=== PATIENT | female | born 1955 | race Caucasian/White ===

== ENCOUNTER → 2018-05-02 | Outpatient (CLI) | payer MEDICARE ==
[2014-09-29 10:25] VITALS: BP 149/68
[~2018-05-02] MED LIST: no home medications
--- NOTE | 2018-05-02 16:28 | KCIC ---
Bone densitometry 05/02/2018 3:00 PM Indication: Osteoporosis. History of adult fracture. Comparison Study: None. Discussion: Bone Densitometry was performed with dual photon absorption of the lumbar spine and proximal left femur Lumbar Spine: Bone average density is 0.751 g/cm2 for L1-L4. T-Score is -2.7. Left femoral neck: Bone average density is 0.603 g/cm2. T-Score is -2.8. 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 Note: Definitions established by the World Health Organization: Normal: T-score is -1.0 or above. Osteopenia: T-score is between -1.0 and -2.5. Osteoporosis: T-score is -2.5 or below. Electronically signed by: Gurwinder Hooper MD (05/02/2018 4:24 PM) [id number]
--- NOTE | 2018-05-02 16:48 | KCIC ---
Bilateral digital screening mammograms with 3-D tomosynthesis: Reason for examination: Routine screening. Comparison is made to previous study dated 10/03/2014. Bilateral mammograms in CC and oblique projections were obtained with 2-D imaging and 3-D tomosynthesis imaging on a [employer] unit and reviewed on the workstation. Interpretation was made with the benefit of CAD. The skin and nipples show no abnormalities. No abnormal axillary lymph nodes are seen. The breast parenchyma is predominantly fatty. (Breast density: Category A.) There continues to be a small circumscribed lesion in the subareolar 5:00 position of the right breast which is unchanged. There are no new dominant masses, suspicious calcifications or architectural distortion. Impression: No evidence of malignancy. Recommend routine screening. BI-RAD Category 2: Benign. "Our facility is accredited by the [employer] Mammography Program." This patient's information has been entered into a reminder system for the patient to be notified with the results of her examination and a target date for the next mammogram. Electronically signed by: Bee Hand MD (05/02/2018 4:44 PM) [id number]
== END | disposition home or self-care (01) ==
LOC: KCIC DEXA 04-24 13:36
PROVIDERS: ATTEND Nurse Practitioner Family
DX: Z12.31 Encounter for screening mammogram for malignant neoplasm of breast (principal); M81.0 Age-related osteoporosis without current pathological fracture; Z78.0 Asymptomatic menopausal state; Z87.81 Personal history of (healed) traumatic fracture; Z87.891 Personal history of nicotine dependence
CPT/HCPCS: 77063; 77067; 77080

== ENCOUNTER 2020-04-18 14:31 | Inpatient (IN) | payer MEDICARE, MEDICAID ==
[~2020-04-18] VITALS: Ht 162.6 cm; Wt 46.5 kg
[~2020-04-18 14:31] MED LIST changes: +ACET325T9 PO; +CETI10TA74 PO; +CYAN25002 SL; +CYCL10TA2 PO; +DONE10TA7 PO; +POLY17PO29 PO; +QUET25TA5 PO
[2020-04-18] MEDS ORDERED: ONDANSETRON PF 4 MG/2 ML VIAL. IVP ONE (14:45)
[2020-04-18] MEDS ORDERED: fentaNYL PF VIAL 100 MCG/2 ML VIAL IVP ONE (14:45)
--- NOTE | 2020-04-18 15:02 | RAD ---
CHEST AP ONLY INDICATION: Reason: PREOP RT HIP FX / Spl. Instructions: / History: . COMPARISON STUDY: None. FINDINGS: Lungs: Normal lung volume. No pulmonary mass or consolidation. The tracheobronchial tree and hilar structures are normal. Pleura: No pleural effusion or pneumothorax. Heart and Mediastinum: The cardiomediastinal silhouette is normal. The great vessels of the thorax are normal. IMPRESSION: No acute cardiopulmonary process. Electronically signed by: Baldev Mello MD (04/18/2020 2:59 PM) [id number]
--- NOTE | 2020-04-18 15:04 | RAD ---
HIP RIGHT 2V WITH PELVIS DATE: 04/18/2020 12:00 AM INDICATION: Reason: fell, right hip pain / Spl. Instructions: / History: COMPARISON: None. FINDINGS: Acute right transcervical femoral neck fracture with proximal migration of the distal femur. IMPRESSION: Acute displaced right femoral neck fracture. Electronically signed by: Baldev Mello MD (04/18/2020 3:01 PM) [id number]
[2020-04-18] MEDS ORDERED: ONDANSETRON PF 4 MG/2 ML VIAL. IV PRN (15:45)
[2020-04-18 16:07] LABS: BASO % 0 % (0-3); EOS % 0 % (0-3); HEMATOCRIT 37.8 % (36.0-47.0); HEMOGLOBIN 12.9 g/dL (12.0-15.5); LYMPH # 1.3 x10^3/uL (1.0-4.8); LYMPH % 17 % (24-48); MEAN CORPUSCULAR HEMOGLOBIN 32 pg (25-35); MEAN CORPUSCULAR HGB CONC 34 g/dL (31-37); MEAN CORPUSCULAR VOLUME 95 fL (79-100); MONO # 0.3 x10^3/uL (0.0-1.1); MONO % 4 % (0-9); NEUT % 79 % (31-73); PLATELET COUNT 226 x10^3/uL (140-400); RED BLOOD COUNT 3.98 x10^6/uL (3.50-5.40); WHITE BLOOD COUNT 7.6 x10^3/uL (4.0-11.0)
[2020-04-18 16:17] LABS: PROTHROMBIN TIME PATIENT 11.8 SEC (11.7-14.0)
[2020-04-18 16:27] LABS: CALCIUM 9.6 mg/dL (8.5-10.1); POTASSIUM 3.9 mmol/L (3.5-5.1)
[2020-04-18 16:33] LABS: ALBUMIN 3.8 g/dL (3.4-5.0); ALBUMIN/GLOBULIN RATIO 1.3 (1.0-1.7); TOTAL BILIRUBIN 0.3 mg/dL (0.2-1.0); TOTAL PROTEIN 6.8 g/dL (6.4-8.2)
--- NOTE | 2020-04-18 18:17 | PHYS DOC ---
Past Medical History Past Medical History: Anxiety, Depression, Other Additional Past Medical Histor: baseline A&O x 1, posterial cortical atrophy Past Surgical History: No Surgical History, Hysterectomy, Other Additional Past Surgical Histo: bilateral wrist and arm Smoking Status: Never Smoker Alcohol Use: None Drug Use: None General Adult EDM: Chief Complaint: TRAUMA ALERT HPI: HPI: Patient is a 64 year old who is legally blind, she tripped over the wheelchair and fell in her room, fell down on the right hip, could not get up because of pain. Patient complains of severe right hip pain. Denies any back pain, no chest pain, no headache, no neck pain. Patient denies any upper extremity pain. Review of Systems: Review of Systems: Constitutional: Denies fever or chills. [] Eyes: Denies change in visual acuity. [] HENT: Denies nasal congestion or sore throat. [] Respiratory: Denies cough or shortness of breath. [] Cardiovascular: Denies chest pain or edema. [] GI: Denies abdominal pain, nausea, vomiting, bloody stools or diarrhea. [] : Denies dysuria. [] Musculoskeletal: Positive for right hip pain, denies any back pain. Integument: Denies rash. [] Neurologic: Denies headache, focal weakness or sensory changes. [] Endocrine: Denies polyuria or polydipsia. [] Lymphatic: Denies swollen glands. [] Psychiatric: Denies depression or anxiety. [] Heart Score: Risk Factors: Risk Factors: DM, Current or recent (<one month) smoker, HTN, HLP, family history of CAD, obesity. Risk Scores: Score 0 - 3: 2.5% MACE over next 6 weeks - Discharge Home Score 4 - 6: 20.3% MACE over next 6 weeks - Admit for Clinical Observation Score 7 - 10: 72.7% MACE over next 6 weeks - Early Invasive Strategies Current Medications: Current Medications Medications (Trade) Dose Ordered Sig/Debra Start Time Stop Time Status Last Admin Dose Admin Fentanyl Citrate (Fentanyl 2ml Vial) 50 mcg PRN Q1HR PRN 04/18/20 15:45 04/19/20 15:44 Ondansetron HCl (Zofran) 4 mg PRN Q8HRS PRN 04/18/20 15:45 04/19/20 15:44 Sodium Chloride 1,000 ml @ 75 mls/hr [id number] 04/18/20 15:31 04/19/20 15:30 Allergies: Allergies: Allergies Coded Allergies Type Severity Reaction Last Updated Verified acetaminophen Adverse Reaction Intermediate 09/29/14 No codeine Adverse Reaction Intermediate 04/18/20 Yes oxycodone Adverse Reaction Intermediate 09/29/14 No Physical Exam: PE: Constitutional: Well developed, well nourished, moderate acute distress due to pain, non-toxic appearance. [] HENT: Normocephalic, atraumatic, bilateral external ears normal, oropharynx moist, no oral exudates, nose normal. [] Eyes: PERRLA, EOMI, conjunctiva normal, no discharge. [] Neck: Normal range of motion, no tenderness, supple, no stridor. [] Cardiovascular:Heart rate regular rhythm, no murmur [] Lungs & Thorax: Bilateral breath sounds clear to auscultation [] Abdomen: Bowel sounds normal, soft, no tenderness, no masses, no pulsatile masses. [] Skin: Warm, dry, no erythema, no rash. [] Back: No tenderness, no CVA tenderness. [] Extremities: Right hip is tender to palpation, right leg is shortened, no open wound. There is strong dorsalis pedis pulse. Neurologic: Alert and oriented X 3, normal motor function, normal sensory function, no focal deficits noted. [] Psychologic: Affect normal, judgement normal, mood normal. [] Current Patient Data: Labs: Laboratory Tests Test 04/18/20 14:56 04/18/20 15:15 04/18/20 15:45 04/18/20 16:00 Magnesium Level 2.2 mg/dL (1.8-2.4) SARS-CoV-2 Antigen (Rapid) Negative (NEGATIVE) Sodium Level 142 mmol/L (136-145) Potassium Level 3.9 mmol/L (3.5-5.1) Chloride Level 105 mmol/L (98-107) Carbon Dioxide Level 29 mmol/L (21-32) Anion Gap 8 (6-14) Blood Urea Nitrogen 22 mg/dL (7-20) H Creatinine 1.0 mg/dL (0.6-1.0) Estimated GFR (Cockcroft-Gault) 56.0 BUN/Creatinine Ratio 22 (6-20) H Glucose Level 124 mg/dL (70-99) H Calcium Level 9.6 mg/dL (8.5-10.1) Total Bilirubin 0.3 mg/dL (0.2-1.0) Aspartate Amino Transferase (AST) 23 U/L (15-37) Alanine Aminotransferase (ALT) 35 U/L (14-59) Alkaline Phosphatase 88 U/L (46-116) Total Protein 6.8 g/dL (6.4-8.2) Albumin 3.8 g/dL (3.4-5.0) Albumin/Globulin Ratio 1.3 (1.0-1.7) White Blood Count 7.6 x10^3/uL (4.0-11.0) Red Blood Count 3.98 x10^6/uL (3.50-5.40) Hemoglobin 12.9 g/dL (12.0-15.5) Hematocrit 37.8 % (36.0-47.0) Mean Corpuscular Volume 95 fL (79-100) Mean Corpuscular Hemoglobin 32 pg (25-35) Mean Corpuscular Hemoglobin Concent 34 g/dL (31-37) Red Cell Distribution Width 14.0 % (11.5-14.5) Platelet Count 226 x10^3/uL (140-400) Neutrophils (%) (Auto) 79 % (31-73) H Lymphocytes (%) (Auto) 17 % (24-48) L Monocytes (%) (Auto) 4 % (0-9) Eosinophils (%) (Auto) 0 % (0-3) Basophils (%) (Auto) 0 % (0-3) Neutrophils # (Auto) 6.0 x10^3/uL (1.8-7.7) Lymphocytes # (Auto) 1.3 x10^3/uL (1.0-4.8) Monocytes # (Auto) 0.3 x10^3/uL (0.0-1.1) Eosinophils # (Auto) 0.0 x10^3/uL (0.0-0.7) Basophils # (Auto) 0.0 x10^3/uL (0.0-0.2) Prothrombin Time 11.8 SEC (11.7-14.0) Prothrombin Time INR 0.9 (0.8-1.1) Activated Partial Thromboplast Time 28 SEC (24-38) Laboratory Tests 04/18/20 16:00 Laboratory Tests 04/18/20 15:45 Vital Signs: Vital Signs Date Time Temp Pulse Resp B/P (MAP) Pulse Ox O2 Delivery O2 Flow Rate FiO2 04/18/20 14:54 21 100 Room Air 04/18/20 14:37 73 04/18/20 14:31 97.9 135/71 (92) 97.9 EKG: EKG: [] Radiology/Procedures: Radiology/Procedures: [][address] [address] IMAGING REPORT Signed PATIENT: ADRIANA SNYDER AACCOUNT: [id number] : 1955 LOCATION: ER AGE: 64 SEX: F EXAM STATUS: PRE ER ORD. PHYSICIAN: DOT AKHTAR DO REASON: fell, right hip pain PROCEDURE: HIP RIGHT 2V WITH PELVIS HIP RIGHT 2V WITH PELVIS DATE: 04/18/2020 12:00 AM INDICATION: Reason: fell, right hip pain / Spl. Instructions: / History: COMPARISON: None. FINDINGS: Acute right transcervical femoral neck fracture with proximal migration of the distal femur. IMPRESSION: Acute displaced right femoral neck fracture. Electronically signed by: Janelle Mello MD (04/18/2020 3:01 PM) [id number] DICTATED and SIGNED BY: JANELLE MELLO MD DATE: 04/18/[address] [address] IMAGING REPORT Signed PATIENT: ADRIANA SNYDER AACCOUNT: [id number] : 1955 LOCATION: ER AGE: 64 SEX: F EXAM STATUS: PRE ER ORD. PHYSICIAN: DOT AKHTAR DO REASON: PREOP RT HIP FX PROCEDURE: CHEST AP ONLY CHEST AP ONLY INDICATION: Reason: PREOP RT HIP FX / Spl. Instructions: / History: . COMPARISON STUDY: None. FINDINGS: Lungs: Normal lung volume. No pulmonary mass or consolidation. The tracheobronchial tree and hilar structures are normal. Pleura: No pleural effusion or pneumothorax. Heart and Mediastinum: The cardiomediastinal silhouette is normal. The great vessels of the thorax are normal. IMPRESSION: No acute cardiopulmonary process. Electronically signed by: Janelle Mello MD (04/18/2020 2:59 PM) [id number] DICTATED and SIGNED BY: JANELLE MELLO MD DATE: 04/18/20 1459 Course & Med Decision Making: Course & Med Decision Making Pertinent Labs and Imaging studies reviewed. (See chart for details) Patient is a 64-year-old female who was brought here for evaluation after she fell at home. Patient was found to have fracture of the right hip, orthopedic doctor Dr. Stallings was consulted, recommended to admit the patient to hospitalist service and he will see the patient tomorrow for surgery. Discussed with Dr. Lazo hospitalist, who agreed to admit the patient Dragon Disclaimer: Colton Disclaimer: This electronic medical record was generated, in whole or in part, using a voice recognition dictation system. Departure Departure Impression: Primary Impression: Closed right hip fracture Disposition: ADMITTED INPATIENT Admitting Physician: TITUSS (DR. LAZO) Condition: STABLE Referrals: HAYDE LOGAN MD (PCP) Justicifation of Admission Dx: Justifications for Admission: Justification of Admission Dx: Yes Fracture: Fracture DOT AKHTAR DO Apr 18, 2020 18:17
[2020-04-18] MEDS: fentaNYL PF VIAL 100 MCG/2 ML VIAL IV PRN ×2 (19:09→21:12)
--- NOTE | 2020-04-18 19:27 | PDOC1 ---
History and Physical Date of Admission Date of Admission DATE: 04/18/20 TIME: 19:22 Source Source: Chart review, Patient History of Present Illness History of Present Illness Ms. Collins, is a 64 year old who is legally blind, in a senior care with degenerative neurologic disease. TOday, she has acute pain in her right leg and hi. She tripped over the wheelchair and fell in her room, fell down on the right hip, could not get up because of pain. marked pain, required PO pain meds, daughter is here to assist with history, pt has neurodeg brain disease. Denies any back pain, no chest pain, no headache, no neck pain Past Medical History Past Medical History blind Cardiovascular: No pertinent hx CENTRAL NERVOUS SYSTEM: Dementia, Periperal neuropathy, Other Musculoskeletal: low back pain Family History Family History: No Significant Social History Smoke: No ALCOHOL: none Current Problem List Problem List Problems Medical Problems: (1) Closed right hip fracture Status: Acute Current Medications Current Medications Current Medications Ondansetron HCl (Zofran) 4 mg 1X ONCE IVP Last administered on 04/18/20at 14:53; Start 04/18/20 at 14:45; Stop 04/18/20 at 14:46; Status DC Fentanyl Citrate (Fentanyl 2ml Vial) 75 mcg 1X ONCE IVP Last administered on 04/18/20at 14:54; Start 04/18/20 at 14:45; Stop 04/18/20 at 14:46; Status DC Ondansetron HCl (Zofran) 4 mg PRN Q8HRS PRN IV NAUSEA/VOMITING; Start 04/18/20 at 15:45; Stop 04/19/20 at 15:44 Fentanyl Citrate (Fentanyl 2ml Vial) 50 mcg PRN Q1HR PRN IV PAIN Last administered on 04/18/20at 19:09; Start 04/18/20 at 15:45; Stop 04/19/20 at 15:44 Sodium Chloride 1,000 ml @ 75 mls/hr [id number] IV ; Start 04/18/20 at 15:31; Stop 04/19/20 at 15:30 Acetaminophen (Tylenol) 500 mg TID PO ; Start 04/18/20 at 21:00; Status UNV Cetirizine HCl (ZyrTEC) 10 mg DAILY PO ; Start 04/19/20 at 09:00; Status UNV Cyclobenzaprine HCl (Flexeril) 10 mg TID PO ; Start 04/18/20 at 21:00; Status UNV Polyethylene Glycol (miraLAX PACKET) 17 gm DAILY PO ; Start 04/19/20 at 09:00; Status UNV Quetiapine Fumarate (SEROquel) 25 mg HS PO ; Start 04/18/20 at 21:00; Status UNV Non-Formulary Medication (Cyanocobalamin (Vitamin B-12) (B-12)) 2,500 mcg BID SL ; Start 04/18/20 at 21:00; Status UNV Cefazolin Sodium (Ancef) 1 gm 1X ONCE IVP ; Start 04/18/20 at 19:30; Stop 04/18/20 at 19:31; Status UNV Active Scripts Active Reported Tylenol (Acetaminophen) 325 Mg Tablet 500 Mg PO TID Zyrtec (Cetirizine Hcl) 10 Mg Tablet 10 Mg PO DAILY Seroquel (Quetiapine Fumarate) 25 Mg Tablet 25 Mg PO HS Miralax (Polyethylene Glycol 3350) 17 Gm Powd.pack 1 Pkt PO DAILY Cyclobenzaprine Hcl 10 Mg Tablet 10 Mg PO TID B-12 (Cyanocobalamin (Vitamin B-12)) 2,500 Mcg Tab.subl 2,500 Mcg SL BID Allergies Allergies: Coded Allergies: acetaminophen (Unverified Adverse Reaction, Intermediate, 09/29/14) codeine (Verified Adverse Reaction, Intermediate, 04/18/20) oxycodone (Unverified Adverse Reaction, Intermediate, 09/29/14) ROS Review of System unable, pt confused, distressed, has degerative neuro disorder Physical Exam General: Alert, severe distress (emotional and in pain), Other (disoriented, confused, ) HEENT: Mucous membr. moist/pink Lungs: Normal air movement Heart: no gallops Extremities: No cyanosis Skin: No rashes Neuro: Normal speech Psych/Mental Status: Other (confused, emotional ) Vitals Vitals Vital Signs Date Time Temp Pulse Resp B/P (MAP) Pulse Ox O2 Delivery O2 Flow Rate FiO2 04/18/20 19:09 20 Room Air 04/18/20 17:00 68 141/81 (101) 100 04/18/20 14:31 97.9 97.9 Labs Labs Laboratory Tests Test 04/18/20 14:56 8/1/20 15:15 04/18/20 15:45 04/18/20 16:00 Magnesium Level 2.2 mg/dL (1.8-2.4) SARS-CoV-2 Antigen (Rapid) Negative (NEGATIVE) Sodium Level 142 mmol/L (136-145) Potassium Level 3.9 mmol/L (3.5-5.1) Chloride Level 105 mmol/L (98-107) Carbon Dioxide Level 29 mmol/L (21-32) Anion Gap 8 (6-14) Blood Urea Nitrogen 22 mg/dL (7-20) Creatinine 1.0 mg/dL (0.6-1.0) Estimated GFR (Cockcroft-Gault) 56.0 BUN/Creatinine Ratio 22 (6-20) Glucose Level 124 mg/dL (70-99) Calcium Level 9.6 mg/dL (8.5-10.1) Total Bilirubin 0.3 mg/dL (0.2-1.0) Aspartate Amino Transf (AST/SGOT) 23 U/L (15-37) Alanine Aminotransferase (ALT/SGPT) 35 U/L (14-59) Alkaline Phosphatase 88 U/L (46-116) Total Protein 6.8 g/dL (6.4-8.2) Albumin 3.8 g/dL (3.4-5.0) Albumin/Globulin Ratio 1.3 (1.0-1.7) White Blood Count 7.6 x10^3/uL (4.0-11.0) Red Blood Count 3.98 x10^6/uL (3.50-5.40) Hemoglobin 12.9 g/dL (12.0-15.5) Hematocrit 37.8 % (36.0-47.0) Mean Corpuscular Volume 95 fL (79-100) Mean Corpuscular Hemoglobin 32 pg (25-35) Mean Corpuscular Hemoglobin Concent 34 g/dL (31-37) Red Cell Distribution Width 14.0 % (11.5-14.5) Platelet Count 226 x10^3/uL (140-400) Neutrophils (%) (Auto) 79 % (31-73) Lymphocytes (%) (Auto) 17 % (24-48) Monocytes (%) (Auto) 4 % (0-9) Eosinophils (%) (Auto) 0 % (0-3) Basophils (%) (Auto) 0 % (0-3) Neutrophils # (Auto) 6.0 x10^3/uL (1.8-7.7) Lymphocytes # (Auto) 1.3 x10^3/uL (1.0-4.8) Monocytes # (Auto) 0.3 x10^3/uL (0.0-1.1) Eosinophils # (Auto) 0.0 x10^3/uL (0.0-0.7) Basophils # (Auto) 0.0 x10^3/uL (0.0-0.2) Prothrombin Time 11.8 SEC (11.7-14.0) Prothromb Time International Ratio 0.9 (0.8-1.1) Activated Partial Thromboplast Time 28 SEC (24-38) Laboratory Tests Test 04/18/20 14:56 04/18/20 15:15 04/18/20 15:45 04/18/20 16:00 Magnesium Level 2.2 mg/dL (1.8-2.4) SARS-CoV-2 Antigen (Rapid) Negative (NEGATIVE) Sodium Level 142 mmol/L (136-145) Potassium Level 3.9 mmol/L (3.5-5.1) Chloride Level 105 mmol/L (98-107) Carbon Dioxide Level 29 mmol/L (21-32) Anion Gap 8 (6-14) Blood Urea Nitrogen 22 mg/dL (7-20) Creatinine 1.0 mg/dL (0.6-1.0) Estimated GFR (Cockcroft-Gault) 56.0 BUN/Creatinine Ratio 22 (6-20) Glucose Level 124 mg/dL (70-99) Calcium Level 9.6 mg/dL (8.5-10.1) Total Bilirubin 0.3 mg/dL (0.2-1.0) Aspartate Amino Transf (AST/SGOT) 23 U/L (15-37) Alanine Aminotransferase (ALT/SGPT) 35 U/L (14-59) Alkaline Phosphatase 88 U/L (46-116) Total Protein 6.8 g/dL (6.4-8.2) Albumin 3.8 g/dL (3.4-5.0) Albumin/Globulin Ratio 1.3 (1.0-1.7) White Blood Count 7.6 x10^3/uL (4.0-11.0) Red Blood Count 3.98 x10^6/uL (3.50-5.40) Hemoglobin 12.9 g/dL (12.0-15.5) Hematocrit 37.8 % (36.0-47.0) Mean Corpuscular Volume 95 fL (79-100) Mean Corpuscular Hemoglobin 32 pg (25-35) Mean Corpuscular Hemoglobin Concent 34 g/dL (31-37) Red Cell Distribution Width 14.0 % (11.5-14.5) Platelet Count 226 x10^3/uL (140-400) Neutrophils (%) (Auto) 79 % (31-73) Lymphocytes (%) (Auto) 17 % (24-48) Monocytes (%) (Auto) 4 % (0-9) Eosinophils (%) (Auto) 0 % (0-3) Basophils (%) (Auto) 0 % (0-3) Neutrophils # (Auto) 6.0 x10^3/uL (1.8-7.7) Lymphocytes # (Auto) 1.3 x10^3/uL (1.0-4.8) Monocytes # (Auto) 0.3 x10^3/uL (0.0-1.1) Eosinophils # (Auto) 0.0 x10^3/uL (0.0-0.7) Basophils # (Auto) 0.0 x10^3/uL (0.0-0.2) Prothrombin Time 11.8 SEC (11.7-14.0) Prothromb Time International Ratio 0.9 (0.8-1.1) Activated Partial Thromboplast Time 28 SEC (24-38) Images Images Acute right transcervical femoral neck fracture with proximal migration of the distal femur. VTE Prophylaxis Ordered VTE Prophylaxis Devices: Yes VTE Pharmacological Prophylaxi: No Assessment/Plan Assessment/Plan fall femoral neck fracture, acute leg pain, unable to wakl Blind cortical/basal degeneration syndrome, some signs of dementia, easily aggravated, disoriented, Justicifation of Admission Dx: Justifications for Admission: Justification of Admission Dx: Yes Fracture: Fracture BOSSMAN LAZO MD Apr 18, 2020 19:27
[2020-04-18] MEDS ORDERED: oxyCODONE/APAP 5/325 1 TAB TABLET PO PRN (19:30)
[2020-04-18] MEDS ORDERED: ceFAZolin SODIUM IV Push 1 GM VIAL. IVP ONE (19:30)
[2020-04-18] MEDS: ACETAMINOPHEN 500 MG TABLET PO SCH ×2 (19:30→21:00)
[2020-04-18] MEDS ORDERED: traMADol 50 MG TABLET PO PRN (19:45)
--- NOTE | 2020-04-18 19:56 | NUR ---
1755 Pt placed in room via guerney from the ED. Daughter is present. Pt refused being moved from the linens and cut clothing under her until more pain medication could be given. I called Leslie VIVAS from the [facility] to get report on patient. Report passed on to Soraya VIVAS for health promotion officer.
[2020-04-18] MEDS: CYCLOBENZAPRINE 10 MG TABLET. PO SCH (21:00)
[2020-04-18] MEDS ORDERED: CYANOCOBALAMIN 2500 MCG SL SCH (21:00)
[2020-04-18] MEDS: QUEtiapine 25 MG TABLET. PO SCH (21:00)
[2020-04-18] MEDS: IV NORMAL SALINE 1000ML BAG 1,000 ML IV SCH (21:30)
[2020-04-18 23:00] VITALS: BP 150/72
[2020-04-19] VITALS (10 sets, daily range): BP systolic 95–146; BP diastolic 35–74
[2020-04-19] MEDS ORDERED: SENN8.8S5 PO (00:04)
[2020-04-19] MEDS ORDERED: ACET500T68 PO (00:04)
[2020-04-19] MEDS ORDERED: POLY15DR20 EACHEYE (00:04)
[2020-04-19] MEDS ORDERED: PHEN1SUP75 RC (00:04)
[2020-04-19] MEDS ORDERED: BUPR100T8 PO (00:04)
--- NOTE | 2020-04-19 00:14 | NUR ---
Assessed pt just prior to 1999. Pt agitated and confused - unable to comprehend what is going on and where daughter is. Is frantic and agitated. Given prn dose of lorazepam to help calm pt down. HCT sat in room with pt until pt settled. No meds given other than ativan as pt too agitated. Will reassess status later in shift to see if pt able to take PO meds.
[2020-04-19] MEDS: IV NORMAL SALINE 1000ML BAG 1,000 ML IV SCH (04:51)
[2020-04-19] MEDS: fentaNYL PF VIAL 100 MCG/2 ML VIAL IV PRN ×4 (06:02→12:18)
[2020-04-19] MEDS ORDERED: IV RINGERS,LACTATED 1000ML 1,000 ML IV SCH ×2 (08:07→08:23)
[2020-04-19] MEDS ORDERED: MORPHINE SULFATE 2 MG/ML VIAL. IV PRN ×2 (08:15→08:30)
[2020-04-19] MEDS ORDERED: LIDOCAINE 1% PF 2 ML VIAL. ID PRN ×2 (08:15→08:30)
[2020-04-19] MEDS ORDERED: ONDANSETRON PF 4 MG/2 ML VIAL. IV PRN (08:15)
[2020-04-19] MEDS ORDERED: fentaNYL PF VIAL 100 MCG/2 ML VIAL IV PRN ×3 (08:15→08:30)
[2020-04-19] MEDS ORDERED: HYDROmorphone 2 MG/ML VIAL IV PRN ×2 (08:15→08:30)
[2020-04-19] MEDS ORDERED: PROCHLORPERAZINE 10 MG/2 ML VIAL. IV PRN ×2 (08:15→08:30)
--- NOTE | 2020-04-19 08:18 | NUR ---
Pt transferred to OR holding area with OR staff and daughter is present.
--- NOTE | 2020-04-19 08:26 | PDOC4 ---
Operative Note Operative Note Date of procedure: 04/19/2020 Surgeon: Freddie Garcia Preoperative diagnosis: Closed right femoral neck fracture Postoperative diagnosis: Same Procedure performed: Right hip hemiarthroplasty Anesthesia: General Findings: Acute femoral neck fracture Blood loss: 100 mL Complications: None Components inserted: [employer] cemented Synergy stem size 9, 44 cobalt chrome head, 40+4 taper sleeve Reason for procedure: Patient is a very pleasant 64-year-old female who resides at a long-term facility and was brought in with her daughter after suffering a ground-level fall and inability to ambulate due to pain. Clinical and radiographic examination were consistent with the preoperative diagnosis. Discussion of the risks, benefits, and alternatives was had with the patient's family member and she elected to proceed with surgery. Description of procedure: Patient was greeted in the preoperative holding area by myself or the correct extremity was verified and marked. She was taken to the operative suite and antibiotics were started as she was brought back. Once in the operating room, she was transferred gently supine to the operating room table where she underwent successful induction of a general anesthetic. She was laid lateral decubitus position with the right side up and secured to the bed with her hip positioning devices. Right lower extremity and hip region were prepped and draped in the usual sterile fashion including Ioban sandwich. We conducted our standard preoperative timeout. I palpated marked surface anatomy and guy a line for my posterior lateral skin incision. I then incised skin with a scalpel and dissected subcutaneous tissue with electrocautery, cauterizing bleeders as they were encountered. Identified the fascia and incised this in line with the skin incision and bluntly split the gluteus padilla in line with its fibers. I swept some bursal tissue posteriorly and took down the quadratus, the piriformis was also taken down and tagged. I identified the capsule and incised in a T-type incision using traction sutures as well. After this, I made my femoral neck cut palpating about 1 cm proximal to the lesser trochanter and deliver the bony pieces from the operative field followed by the femoral head and remainder of the neck. I inspected the acetabulum, she had somewhere. I irrigated everything out to help make sure I had removed all loose bony pieces. I then reposition the leg and placed my proximal femoral elevator in place, I used my lady cutting osteotome followed by canal finding reamer and then broaches. I broached to the above size which I felt gave a good fit and fill. I then trialed head and neck combinations to achieve the best leg length and stability. After this, I redislocated the hip and removed all trial components and then cemented the stem in place, holding pressure while the cement polymerized after thoroughly irrigating the canal that is. After this, I re-trialed the head sizes and felt the above size gave the best stability and leg length. I then washed and dried the Yañez taper region and gently impacted the head in position and reduced the hip. Capsule was closed with simple interrupted #2 Ethibond. Piriformis was reapproximated through drill holes. [id number] 0 Vicryl was used to repair quadratus. Fascia was closed with running #2 Quill. Inverted interrupted 2 oh in a multilayered fashion was used for subcutaneous tissue and angelica were used for skin. I injected my periarticular mixture into the lori-incisional soft tissues. All counts were correct x2 prior to wound closure. No complications. At the conclusion, the hip was cleansed and dried and our incisional wound VAC was applied. Patient was then laid supine and transferred on the spine to the recovery cart negative PACU stable and extubated condition. Postoperative plan is to readmit her to the floor under the care of the hospitalist., I will follow along. FREDDIE GARCIA II, MD Apr 19, 2020 08:26
--- NOTE | 2020-04-19 08:31 | PDOC2 ---
CONSULT Date of Consult Date of Consult DATE: 04/19/20 TIME: 08:28 Reason for Consult Reason for Consult: Right hip fracture Referring Physician Referring Physician: Davion Identification/Chief Complaint Chief Complaint Right hip pain Source Source: Caregiver History of Present Illness Reason for Visit: Patient is a pleasant 64-year-old female who is legally blind and resides at [facility] [place] in [place] and had a ground-level fall when she tripped over a wheelchair. Due to pain and inability ambulate she was brought into the emergency department and found to have a femoral neck fracture she does not verbalize much or answer questions. She is accompanied by her daughter who is at bedside. They tell me that normally the patient is able to ambulate fairly well in her facility. Past Medical History Cardiovascular: No pertinent hx CENTRAL NERVOUS SYSTEM: Dementia, Periperal neuropathy, Other Musculoskeletal: low back pain Family History Family History: No Significant Social History No ALCOHOL: none Current Problem List Problem List Problems Medical Problems: (1) Closed right hip fracture Status: Acute Current Medications Current Medications Current Medications Ondansetron HCl (Zofran) 4 mg 1X ONCE IVP Last administered on 04/18/20at 14:53; Start 04/18/20 at 14:45; Stop 04/18/20 at 14:46; Status DC Fentanyl Citrate (Fentanyl 2ml Vial) 75 mcg 1X ONCE IVP Last administered on 04/18/20at 14:54; Start 04/18/20 at 14:45; Stop 04/18/20 at 14:46; Status DC Ondansetron HCl (Zofran) 4 mg PRN Q8HRS PRN IV NAUSEA/VOMITING; Start 04/18/20 at 15:45; Stop 04/19/20 at 15:44 Fentanyl Citrate (Fentanyl 2ml Vial) 50 mcg PRN Q1HR PRN IV PAIN Last administered on 04/19/20at 08:01; Start 04/18/20 at 15:45; Stop 04/19/20 at 15:44 Sodium Chloride 1,000 ml @ 75 mls/hr [id number] IV Last administered on 04/18/20at 21:30; Start 04/18/20 at 15:31; Stop 04/19/20 at 15:30 Acetaminophen (Tylenol) 500 mg TID PO ; Start 04/18/20 at 19:30 Cetirizine HCl (ZyrTEC) 10 mg DAILY PO ; Start 04/19/20 at 09:00 Cyclobenzaprine HCl (Flexeril) 10 mg TID PO ; Start 04/18/20 at 21:00 Polyethylene Glycol (miraLAX PACKET) 17 gm DAILY PO ; Start 04/19/20 at 09:00 Quetiapine Fumarate (SEROquel) 25 mg HS PO ; Start 04/18/20 at 21:00 Non-Formulary Medication (Cyanocobalamin (Vitamin B-12) (B-12)) 2,500 mcg BID SL ; Start 04/18/20 at 21:00; Stop 04/19/20 at 08:12; Status DC Cefazolin Sodium (Ancef) 1 gm 1X ONCE IVP ; Start 04/18/20 at 19:30; Stop 04/18/20 at 19:31; Status DC Oxycodone/ Acetaminophen (Percocet 5/325) 1 tab PRN Q4HRS PRN PO PAIN; Start 04/18/20 at 19:30 Lorazepam (Ativan Inj) 0.5 mg PRN Q4HRS PRN IVP ANXIETY / AGITATION Last administered on 04/18/20at 20:18; Start 04/18/20 at 19:30 Tramadol HCl (Ultram) 50 mg PRN Q6HRS PRN PO PAIN; Start 04/18/20 at 19:45 Morphine Sulfate 5 mg/Ketorolac Tromethamine 30 mg/Ropivacaine 60 ml/Epinephrine HCl 0.5 mg/Sodium Chloride 100 ml @ 100 mls/hr 1X ONCE INT ART ; Start 04/19/20 at 08:00; Stop 04/19/20 at 08:59 Ondansetron HCl (Zofran) 4 mg PRN Q6HRS PRN IV NAUSEA/VOMITING; Start 04/19/20 at 08:15; Stop 04/20/20 at 08:14 Fentanyl Citrate (Fentanyl 2ml Vial) 25 mcg PRN Q5MIN PRN IV MILD PAIN 1-3; Start 04/19/20 at 08:15; Stop 04/20/20 at 08:14 Fentanyl Citrate (Fentanyl 2ml Vial) 50 mcg PRN Q5MIN PRN IV MODERATE TO SEVERE PAIN; Start 04/19/20 at 08:15; Stop 04/20/20 at 08:14 Morphine Sulfate (Morphine Sulfate) 1 mg PRN Q10MIN PRN IV SEVERE PAIN 7-10; Start 04/19/20 at 08:15; Stop 04/20/20 at 08:14 Ringer's Solution 1,000 ml @ 30 mls/hr Q24H IV ; Start 04/19/20 at 08:07; Stop 04/19/20 at 20:06 Lidocaine HCl (Xylocaine-Mpf 1% 2ml Vial) 2 ml PRN 1X PRN ID PRIOR TO IV START; Start 04/19/20 at 08:15; Stop 04/20/20 at 08:14 Hydromorphone HCl (Dilaudid) 0.5 mg PRN Q10MIN PRN IV SEV PAIN, Second choice; Start 04/19/20 at 08:15; Stop 04/20/20 at 08:14 Prochlorperazine Edisylate (Compazine) 5 mg PACU PRN PRN IV NAUSEA, MRX1; Start 04/19/20 at 08:15; Stop 04/20/20 at 08:14 Active Scripts Active Reported Bupropion Hcl Sr (Bupropion Hcl) 100 Mg Tablet.er 100 Mg PO DAILY Preparation H Suppository (Phenylephrine Hcl/Vanderbilt Butter) 1 Each Supp.rect 1 Each RC DAILY PRN Acetaminophen 500 Mg Tablet 1,000 Mg PO TID PRN Tylenol (Acetaminophen) 325 Mg Tablet 500 Mg PO TID Zyrtec (Cetirizine Hcl) 10 Mg Tablet 10 Mg PO DAILY Seroquel (Quetiapine Fumarate) 25 Mg Tablet 25 Mg PO HS Miralax (Polyethylene Glycol 3350) 17 Gm Powd.pack 1 Pkt PO DAILY Cyclobenzaprine Hcl 10 Mg Tablet 10 Mg PO TID B-12 (Cyanocobalamin (Vitamin B-12)) 2,500 Mcg Tab.subl 2,500 Mcg SL BID Polyvinyl Alcohol 15 Ml Drops 1 Drop EACHEYE TID 30 Days Allergies Allergies: Coded Allergies: acetaminophen (Unverified Adverse Reaction, Intermediate, 09/29/14) codeine (Verified Adverse Reaction, Intermediate, 04/18/20) oxycodone (Unverified Adverse Reaction, Intermediate, 09/29/14) ROS Review of System Unobtainable secondary to patient's mental status Physical Exam General: Alert, Oriented X3 HEENT: Atraumatic, EOMI Lungs: Other (Respirations are unlabored with symmetric chest rise) Heart: Regular rate Abdomen: Soft, No tenderness Extremities: No edema, Normal pulses Skin: No rashes Neuro: Other (She spontaneously wiggles her toes, but does not follow commands) Psych/Mental Status: Other (She does not answer asked questions.) MUSCULOSKELETAL: Other (Right lower extremity is slightly shorter and held externally rotated. No grimace or withdrawal with palpation around feet ankles or knees or her left hip.) Vitals VITALS Vital Signs Date Time Temp Pulse Resp B/P (MAP) Pulse Ox O2 Delivery O2 Flow Rate FiO2 04/19/20 08:01 20 Room Air 04/19/20 07:00 98.2 76 146/69 (94) 99 98.2 Labs Labs Laboratory Tests Test 04/18/20 14:56 04/18/20 15:15 04/18/20 15:45 04/18/20 16:00 Magnesium Level 2.2 mg/dL (1.8-2.4) SARS-CoV-2 Antigen (Rapid) Negative (NEGATIVE) Sodium Level 142 mmol/L (136-145) Potassium Level 3.9 mmol/L (3.5-5.1) Chloride Level 105 mmol/L (98-107) Carbon Dioxide Level 29 mmol/L (21-32) Anion Gap 8 (6-14) Blood Urea Nitrogen 22 mg/dL (7-20) Creatinine 1.0 mg/dL (0.6-1.0) Estimated GFR (Cockcroft-Gault) 56.0 BUN/Creatinine Ratio 22 (6-20) Glucose Level 124 mg/dL (70-99) Calcium Level 9.6 mg/dL (8.5-10.1) Total Bilirubin 0.3 mg/dL (0.2-1.0) Aspartate Amino Transf (AST/SGOT) 23 U/L (15-37) Alanine Aminotransferase (ALT/SGPT) 35 U/L (14-59) Alkaline Phosphatase 88 U/L (46-116) Total Protein 6.8 g/dL (6.4-8.2) Albumin 3.8 g/dL (3.4-5.0) Albumin/Globulin Ratio 1.3 (1.0-1.7) White Blood Count 7.6 x10^3/uL (4.0-11.0) Red Blood Count 3.98 x10^6/uL (3.50-5.40) Hemoglobin 12.9 g/dL (12.0-15.5) Hematocrit 37.8 % (36.0-47.0) Mean Corpuscular Volume 95 fL (79-100) Mean Corpuscular Hemoglobin 32 pg (25-35) Mean Corpuscular Hemoglobin Concent 34 g/dL (31-37) Red Cell Distribution Width 14.0 % (11.5-14.5) Platelet Count 226 x10^3/uL (140-400) Neutrophils (%) (Auto) 79 % (31-73) Lymphocytes (%) (Auto) 17 % (24-48) Monocytes (%) (Auto) 4 % (0-9) Eosinophils (%) (Auto) 0 % (0-3) Basophils (%) (Auto) 0 % (0-3) Neutrophils # (Auto) 6.0 x10^3/uL (1.8-7.7) Lymphocytes # (Auto) 1.3 x10^3/uL (1.0-4.8) Monocytes # (Auto) 0.3 x10^3/uL (0.0-1.1) Eosinophils # (Auto) 0.0 x10^3/uL (0.0-0.7) Basophils # (Auto) 0.0 x10^3/uL (0.0-0.2) Prothrombin Time 11.8 SEC (11.7-14.0) Prothromb Time International Ratio 0.9 (0.8-1.1) Activated Partial Thromboplast Time 28 SEC (24-38) Laboratory Tests Test 04/18/20 14:56 04/18/20 15:15 04/18/20 15:45 04/18/20 16:00 Magnesium Level 2.2 mg/dL (1.8-2.4) SARS-CoV-2 Antigen (Rapid) Negative (NEGATIVE) Sodium Level 142 mmol/L (136-145) Potassium Level 3.9 mmol/L (3.5-5.1) Chloride Level 105 mmol/L (98-107) Carbon Dioxide Level 29 mmol/L (21-32) Anion Gap 8 (6-14) Blood Urea Nitrogen 22 mg/dL (7-20) Creatinine 1.0 mg/dL (0.6-1.0) Estimated GFR (Cockcroft-Gault) 56.0 BUN/Creatinine Ratio 22 (6-20) Glucose Level 124 mg/dL (70-99) Calcium Level 9.6 mg/dL (8.5-10.1) Total Bilirubin 0.3 mg/dL (0.2-1.0) Aspartate Amino Transf (AST/SGOT) 23 U/L (15-37) Alanine Aminotransferase (ALT/SGPT) 35 U/L (14-59) Alkaline Phosphatase 88 U/L (46-116) Total Protein 6.8 g/dL (6.4-8.2) Albumin 3.8 g/dL (3.4-5.0) Albumin/Globulin Ratio 1.3 (1.0-1.7) White Blood Count 7.6 x10^3/uL (4.0-11.0) Red Blood Count 3.98 x10^6/uL (3.50-5.40) Hemoglobin 12.9 g/dL (12.0-15.5) Hematocrit 37.8 % (36.0-47.0) Mean Corpuscular Volume 95 fL (79-100) Mean Corpuscular Hemoglobin 32 pg (25-35) Mean Corpuscular Hemoglobin Concent 34 g/dL (31-37) Red Cell Distribution Width 14.0 % (11.5-14.5) Platelet Count 226 x10^3/uL (140-400) Neutrophils (%) (Auto) 79 % (31-73) Lymphocytes (%) (Auto) 17 % (24-48) Monocytes (%) (Auto) 4 % (0-9) Eosinophils (%) (Auto) 0 % (0-3) Basophils (%) (Auto) 0 % (0-3) Neutrophils # (Auto) 6.0 x10^3/uL (1.8-7.7) Lymphocytes # (Auto) 1.3 x10^3/uL (1.0-4.8) Monocytes # (Auto) 0.3 x10^3/uL (0.0-1.1) Eosinophils # (Auto) 0.0 x10^3/uL (0.0-0.7) Basophils # (Auto) 0.0 x10^3/uL (0.0-0.2) Prothrombin Time 11.8 SEC (11.7-14.0) Prothromb Time International Ratio 0.9 (0.8-1.1) Activated Partial Thromboplast Time 28 SEC (24-38) Images Images Hip and pelvis x-rays were reviewed Assessment/Plan Assessment/Plan Closed right femoral neck fracture. I did discuss the risks, benefits, a lternatives and rationale for right hip hemiarthroplasty with the patient's daughter and she elected to proceed. We will plan on surgery this morning. VENKATESH GARCIA II, MD Apr 19, 2020 08:31
[2020-04-19] MEDS ORDERED: ceFAZolin SODIUM IV Push 1 GM VIAL. IVP ONE (08:58)
[2020-04-19] MEDS ORDERED: fentaNYL PF VIAL 100 MCG/2 ML VIAL ONE (08:59)
[2020-04-19] MEDS: CYCLOBENZAPRINE 10 MG TABLET. PO SCH ×3 (09:00→20:41)
[2020-04-19] MEDS: ACETAMINOPHEN 500 MG TABLET PO SCH ×3 (09:00→20:41)
[2020-04-19] MEDS: CETIRIZINE HCL 10 MG TABLET. PO SCH (09:00)
[2020-04-19] MEDS: POLYETHYLENE GLYCOL 3350 17 GM PACKET. PO SCH (09:00)
[2020-04-19] MEDS: NICOTINE 21MG PATCH. TD SCH (10:00)
[2020-04-19] MEDS ORDERED: ROCURONIUM 50 MG/5 ML VIAL. ONE (10:03)
[2020-04-19] MEDS ORDERED: fentaNYL PF VIAL 250 MCG/5 ML VIAL ONE (10:06)
[2020-04-19] MEDS ORDERED: PROPOFOL 10 MG/ML (20ML) VIAL. IV ONE (10:08)
[2020-04-19] MEDS ORDERED: LIDOCAINE 2% PF 5 ML VIAL. ONE (10:08)
[2020-04-19] MEDS ORDERED: ONDANSETRON PF 4 MG/2 ML VIAL. ONE (10:40)
[2020-04-19] MEDS ORDERED: DEXAMETHASONE SOD PHOS 4 MG/ML VIAL ONE (10:40)
[2020-04-19] MEDS ORDERED: GLYCOPYRROLATE 1 MG/5 ML VIAL. ONE (10:40)
[2020-04-19] MEDS ORDERED: NEOSTIGMINE METHYLSULFATE 5 MG/5 ML SYRINGE. ONE (10:40)
[2020-04-19] MEDS: MORPHINE SULFATE 5 MG, KETOROLAC 30MG VIAL 30 MG, ROPIVacaine 0.5% PF 60 ML, EPINEPHrin... INT ART ONE ×2 (10:43→11:15)
[2020-04-19] MEDS ORDERED: PHENYLEPHRINE in 0.9% NACL PF 1 MG/10 ML SYRINGE. IV ONE (11:02)
[2020-04-19] MEDS ORDERED: HYDROmorphone 2 MG/ML VIAL ONE (11:29)
--- NOTE | 2020-04-19 12:03 | RAD ---
PELVIS DATE: 04/19/2020 11:43 AM INDICATION: Reason: postop / Spl. Instructions: / History: COMPARISON: 04/18/2020. FINDINGS: Postsurgical changes of interval right total hip arthroplasty. Surgical hardware is intact. No periprosthetic fracture is seen. Postsurgical soft tissue gas and skin angelica are present. IMPRESSION: Interval right total hip arthroplasty. No periprosthetic fracture is seen. Electronically signed by: Baldev Mello MD (04/19/2020 12:00 PM) [id number]
--- NOTE | 2020-04-19 12:14 | HP ---
ADMIT DATE: 04/18/2020 HISTORY OF PRESENT ILLNESS: The patient is a 64-year-old female patient, resident at [facility], who apparently fell and tripped over a wheelchair and fell in her room, fell down on the right hip, could not get up because of pain. The patient complained of severe right hip pain. Denies any other complaint, in particular denies any back pain, chest pain, headache or neck pain. No upper extremity pain. She is legally blind and she has posterior cortical atrophy; therefore, she was brought to the Emergency Room of [facility] where she was evaluated. Her x-ray of the hip and pelvis showed that the patient has acute right transcervical femoral neck fracture with proximal migration of the distal femur. Chest x-ray was unremarkable, in particular showed normal lung volumes, no pulmonary masses or consolidation, the tracheobronchial tree and hilar structures are normal, no pleural effusion or pneumothorax. Heart and mediastinum showed the cardiomediastinal silhouette is normal. The great vessels of thorax are normal and therefore, the patient was admitted for pain management and to consult the orthopedic surgeon for definitive surgical intervention. PAST MEDICAL HISTORY: Significant for anxiety and depression. She is legally blind and she has posterior cortical atrophy. PAST SURGICAL HISTORY: Hysterectomy, bilateral wrist and arm fracture. FAMILY HISTORY: Unobtainable. SOCIAL HISTORY: She is currently residing at [facility]. She does not smoke, drink alcohol or use recreational drugs. REVIEW OF SYSTEMS: Unobtainable. PHYSICAL EXAMINATION: GENERAL: On arrival to the Emergency Room, she looked well and was clearly in no apparent respiratory distress, pale, but no jaundice, cyanosis or thyromegaly. No jugular venous distention. No limb edema. VITAL SIGNS: Her heart rate was 70, blood pressure 135/71, temperature was 97.9, respiratory rate was 13, and oxygen saturation 100% on room air. HEAD, EYES, EARS, NOSE AND THROAT: Showed normocephalic, atraumatic. NECK: Supple. CARDIAC: Normal first and second heart sounds. No gallop, rub or murmur. CHEST: Clear to auscultation. No crepitation or rhonchi. ABDOMEN: Distended, soft, nontender. NEUROLOGIC: She is legally blind and she does not really follow commands; however, her right lower extremity is slightly shortened and externally rotated; however, the patient does not grimace or withdraw on palpation around her feet, ankles or knees. LABORATORY DATA: She has had lab work done in the Emergency Room which showed a white cell count of 7600, hemoglobin 12.9, hematocrit 37.8, MCV 95, and platelet count 226,000. Her chemistry showed a serum sodium 142, potassium 3.9, chloride 105, bicarbonate 29, anion gap of 8, BUN 22, creatinine 1, estimated GFR was 56 mL per minute. Her glucose 124, calcium was 9.6, magnesium 2.2. Total bilirubin, AST, ALT, alkaline phosphatase were normal. Total protein 6.8, albumin 3.8. Her prothrombin time, INR and APTT were normal. Her COVID-19 rapid test was negative. Her chest x-ray showed no acute cardiopulmonary process and x-ray of her hip and pelvis showed the patient has acute displaced right femoral neck fracture. ASSESSMENT AND PLAN: The patient was admitted to the floor, continued on IV antibiotic, continued all her other home medications. We have consulted Dr. Stallings for evaluation and definitive surgical treatment. ISABELA LERNER MD DR: VANE/antoine JOB#: [id number] / [id number]
[2020-04-19] MEDS: ceFAZolin SODIUM IV Push 1 GM VIAL. IVP SCH ×2 (16:35→20:41)
[2020-04-19] MEDS: QUEtiapine 25 MG TABLET. PO SCH (20:41)
[2020-04-19 21:08] LABS: BILIRUBIN,URINE NEGATIVE (NEG); CLARITY,URINE CLEAR; COLOR,URINE YELLOW; NITRITE,URINE NEGATIVE (NEG); PH,URINE 5.5 (<5.0-8.0); PROTEIN,URINE NEGATIVE (NEG-TRACE); UROBILINOGEN,URINE 0.2 mg/dL (0.2 mg/dL)
[2020-04-19 21:16] LABS: BACTERIA,URINE FEW /HPF (0-FEW); RBC,URINE OCC /HPF (0-2); SQUAMOUS EPITHELIAL CELL,UR OCC /LPF
[2020-04-19 21:17] LABS: HYALINE CASTS, URINE FEW /HPF
[2020-04-20 03:00] VITALS: BP 132/64
[2020-04-20] MEDS: ceFAZolin SODIUM IV Push 1 GM VIAL. IVP SCH (03:42)
[2020-04-20 07:23] VITALS: BP 145/67
[2020-04-20] MEDS: CYCLOBENZAPRINE 10 MG TABLET. PO SCH ×5 (08:25→20:45)
[2020-04-20] MEDS: CETIRIZINE HCL 10 MG TABLET. PO SCH ×2 (08:25→08:33)
[2020-04-20] MEDS: ACETAMINOPHEN 500 MG TABLET PO SCH ×4 (08:25→20:45)
[2020-04-20] MEDS: POLYETHYLENE GLYCOL 3350 17 GM PACKET. PO SCH (08:25)
[2020-04-20] MEDS: NICOTINE 21MG PATCH. TD SCH (08:25)
--- NOTE | 2020-04-20 09:02 | PN ---
DATE: 04/20/2020 SUBJECTIVE: The patient is resting, slightly propped up in bed, sleeping comfortably. Continue to hallucinate, apparently has been restless, agitated the whole night. OBJECTIVE: GENERAL: When I saw her this morning, she looked well and was clearly in no apparent respiratory distress. No pallor, jaundice, cyanosis, or thyromegaly. No jugular venous distention. No limb edema. VITAL SIGNS: Her heart rate was 93, blood pressure was 145/67, temperature was 98.7, respiratory rate was 18, and oxygen saturation was 98%. The rest of the clinical exam is stable, has not really changed. She is status post right hip hemiarthroplasty that was done successfully under general anesthesia. Her lab work is still pending at the time of this dictation. ASSESSMENT: 1. Fall with resultant right femoral neck fracture, status post right hip hemiarthroplasty. 2. Posterior cortical atrophy. 3. She is legally blind. 4. Anxiety and depression. PLAN: To continue with pain management. Continue with DVT prophylaxis. Continue with nicotine patch for nicotine dependence. We will start the process of physical and occupational therapy and she should be on a regular diet. ISABELA LERNER MD DR: VANE/antoine JOB#: [id number] / [id number]
--- NOTE | 2020-04-20 09:17 | NUR ---
SW following. Discussed with RN. 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 Pt on room air, full liquid diet, COVID-19 negative. PT/OT ordered today. ELODIA will continue to follow.
--- NOTE | 2020-04-20 09:50 | PDOC ---
ORTHO PROGRESS NOTES Subjective Daughter at bedside, patient more disoriented and confused. Vitals Vital Signs Date Time Temp Pulse Resp B/P (MAP) Pulse Ox O2 Delivery O2 Flow Rate FiO2 04/20/20 08:00 Room Air 04/20/20 07:23 98.7 93 18 145/67 (93) 98 98.7 04/19/20 20:00 2 Labs Laboratory Tests Test 04/18/20 14:56 04/18/20 15:15 04/18/20 15:45 04/18/20 16:00 Magnesium Level 2.2 mg/dL (1.8-2.4) SARS-CoV-2 Antigen (Rapid) Negative (NEGATIVE) Sodium Level 142 mmol/L (136-145) Potassium Level 3.9 mmol/L (3.5-5.1) Chloride Level 105 mmol/L (98-107) Carbon Dioxide Level 29 mmol/L (21-32) Anion Gap 8 (6-14) Blood Urea Nitrogen 22 mg/dL (7-20) Creatinine 1.0 mg/dL (0.6-1.0) Estimated GFR (Cockcroft-Gault) 56.0 BUN/Creatinine Ratio 22 (6-20) Glucose Level 124 mg/dL (70-99) Calcium Level 9.6 mg/dL (8.5-10.1) Total Bilirubin 0.3 mg/dL (0.2-1.0) Aspartate Amino Transf (AST/SGOT) 23 U/L (15-37) Alanine Aminotransferase (ALT/SGPT) 35 U/L (14-59) Alkaline Phosphatase 88 U/L (46-116) Total Protein 6.8 g/dL (6.4-8.2) Albumin 3.8 g/dL (3.4-5.0) Albumin/Globulin Ratio 1.3 (1.0-1.7) White Blood Count 7.6 x10^3/uL (4.0-11.0) Red Blood Count 3.98 x10^6/uL (3.50-5.40) Hemoglobin 12.9 g/dL (12.0-15.5) Hematocrit 37.8 % (36.0-47.0) Mean Corpuscular Volume 95 fL (79-100) Mean Corpuscular Hemoglobin 32 pg (25-35) Mean Corpuscular Hemoglobin Concent 34 g/dL (31-37) Red Cell Distribution Width 14.0 % (11.5-14.5) Platelet Count 226 x10^3/uL (140-400) Neutrophils (%) (Auto) 79 % (31-73) Lymphocytes (%) (Auto) 17 % (24-48) Monocytes (%) (Auto) 4 % (0-9) Eosinophils (%) (Auto) 0 % (0-3) Basophils (%) (Auto) 0 % (0-3) Neutrophils # (Auto) 6.0 x10^3/uL (1.8-7.7) Lymphocytes # (Auto) 1.3 x10^3/uL (1.0-4.8) Monocytes # (Auto) 0.3 x10^3/uL (0.0-1.1) Eosinophils # (Auto) 0.0 x10^3/uL (0.0-0.7) Basophils # (Auto) 0.0 x10^3/uL (0.0-0.2) Prothrombin Time 11.8 SEC (11.7-14.0) Prothromb Time International Ratio 0.9 (0.8-1.1) Activated Partial Thromboplast Time 28 SEC (24-38) Test 04/19/20 20:35 Urine Collection Type Unknown Urine Color Yellow Urine Clarity Clear Urine pH 5.5 (<5.0-8.0) Urine Specific Chase 1.020 (1.000-1.030) Urine Protein Negative mg/dL (NEG-TRACE) Urine Glucose (UA) Negative mg/dL (NEG) Urine Ketones (Stick) Negative mg/dL (NEG) Urine Blood Negative (NEG) Urine Nitrite Negative (NEG) Urine Bilirubin Negative (NEG) Urine Urobilinogen Dipstick 0.2 mg/dL (0.2 mg/dL) Urine Leukocyte Esterase Small (NEG) Urine RBC Occ /HPF (0-2) Urine WBC 5-10 /HPF (0-4) Urine Squamous Epithelial Cells Occ /LPF Urine Bacteria Few /HPF (0-FEW) Urine Hyaline Casts Few /HPF Urine Mucus Marked /LPF Laboratory Tests Test 04/19/20 20:35 Urine Collection Type Unknown Urine Color Yellow Urine Clarity Clear Urine pH 5.5 (<5.0-8.0) Urine Specific Chase 1.020 (1.000-1.030) Urine Protein Negative mg/dL (NEG-TRACE) Urine Glucose (UA) Negative mg/dL (NEG) Urine Ketones (Stick) Negative mg/dL (NEG) Urine Blood Negative (NEG) Urine Nitrite Negative (NEG) Urine Bilirubin Negative (NEG) Urine Urobilinogen Dipstick 0.2 mg/dL (0.2 mg/dL) Urine Leukocyte Esterase Small (NEG) Urine RBC Occ /HPF (0-2) Urine WBC 5-10 /HPF (0-4) Urine Squamous Epithelial Cells Occ /LPF Urine Bacteria Few /HPF (0-FEW) Urine Hyaline Casts Few /HPF Urine Mucus Marked /LPF Notes awake, confused in bed dressing intact Assessment and Plan daughter hopes to hold off on any narcotics no new recs from VENKATESH Alaniz II, MD Apr 20, 2020 09:50
[2020-04-20 10:27] LABS: HEMATOCRIT 29.1 % (36.0-47.0); HEMOGLOBIN 9.9 g/dL (12.0-15.5); RED BLOOD COUNT 3.06 x10^6/uL (3.50-5.40); RED CELL DISTRIBUTION WIDTH 13.8 % (11.5-14.5); WHITE BLOOD COUNT 7.5 x10^3/uL (4.0-11.0)
[2020-04-20 10:51] LABS: ALBUMIN 2.7 g/dL (3.4-5.0); ALBUMIN/GLOBULIN RATIO 0.9 (1.0-1.7); CALCIUM 8.3 mg/dL (8.5-10.1); CREATININE 0.8 mg/dL (0.6-1.0); GFR 72.4; POTASSIUM 3.7 mmol/L (3.5-5.1); TOTAL BILIRUBIN 0.5 mg/dL (0.2-1.0); TOTAL PROTEIN 5.8 g/dL (6.4-8.2)
[2020-04-20 11:07] VITALS: BP 150/75
[2020-04-20] MEDS: ENOXAPARIN 40 MG/0.4 ML SYRINGE. SQ SCH (11:38)
--- NOTE | 2020-04-20 15:16 | EKG ---
[facility] [address] [place] [address] Test Date: 2020-04-18 Test Time: 14:43:09 Pat Name: ADRIANA SNYDER Department: Room: Gender: F [employer] Operator: : [id number] Requested By: DOT AKHTAR Order Number: [id number] Reading MD: Measurements Intervals [place] Rate: 66 P: 66 IL: 132 QRS: 69 QRSD: 82 T: 75 QT: 404 QTc: 425 Interpretive Statements SINUS RHYTHM QRS(T) CONTOUR ABNORMALITY CONSIDER ANTEROSEPTAL MYOCARDIAL DAMAGE POSSIBLY ABNORMAL ECG RI6.01 No previous ECG available for comparison
[2020-04-20 15:27] VITALS: BP 134/59
[2020-04-20 19:00] VITALS: BP 145/83
[2020-04-20] MEDS ORDERED: PANTOPRAZOLE IV PUSH 40 MG VIAL. IVP ONE (20:00)
[2020-04-20] MEDS: QUEtiapine 25 MG TABLET. PO SCH (20:45)
[2020-04-20 23:00] VITALS: BP 158/80
[2020-04-21 03:00] VITALS: BP 139/73
[2020-04-21 07:00] VITALS: BP 136/71
[2020-04-21] MEDS: PANTOPRAZOLE IV PUSH 40 MG VIAL. IVP SCH (07:13)
[2020-04-21] MEDS: CYCLOBENZAPRINE 10 MG TABLET. PO SCH ×3 (07:14→20:19)
[2020-04-21] MEDS: POLYETHYLENE GLYCOL 3350 17 GM PACKET. PO SCH (07:15)
[2020-04-21] MEDS: CETIRIZINE HCL 10 MG TABLET. PO SCH (07:15)
[2020-04-21] MEDS: NICOTINE 21MG PATCH. TD SCH (08:04)
[2020-04-21] MEDS: ACETAMINOPHEN 500 MG TABLET PO SCH ×4 (08:05→20:19)
--- NOTE | 2020-04-21 08:56 | NUR ---
SW following. Discussed with RN, pt was up all night last night. PT/OT recommending SNU. ELODIA spoke with pt's daughter, Florencia ([phone]), she is agreeable for pt to return to [facility] SNU. ELODIA faxed updates to [facility]. Awaiting confirmation of whether pt is ready to discharge or not. ELODIA will continue to follow.
--- NOTE | 2020-04-21 10:40 | RAD ---
CHEST AP ONLY History: Reason: fever / Spl. Instructions: / History: Comparison: April 18, 2020 Findings: No consolidation or pleural effusion. Normal heart size. No pneumothorax. Impression: 1. No acute cardiopulmonary process. Electronically signed by: Brayan Vail DO (04/21/2020 10:37 AM) [facility]
--- NOTE | 2020-04-21 10:50 | PN ---
DATE: 04/21/2020 SUBJECTIVE: The patient is resting, slightly propped up in bed, sleeping comfortably, in no apparent distress. According to the nursing staff, the patient has not slept the whole night. She has been restless, agitated and she has not eaten despite assistance by staff and family. She did also spike her temperature last night up to 101.8. PHYSICAL EXAMINATION: GENERAL: When I examined her this morning, she looked pale, but no jaundice, cyanosis or thyromegaly. No jugular venous distention. No limb edema. VITAL SIGNS: Her heart rate was 83, blood pressure was 136/71, temperature was 98.9, respiratory rate was 18 and oxygen saturation was 99% on room air. HEENT: Showed normocephalic, atraumatic. NECK: Supple. HEART: Normal first and second heart sounds. No gallop, rub or murmur. CHEST: Clear to auscultation. No crepitation or rhonchi. ABDOMEN: Distended, soft, nontender. No guarding or rigidity. No organomegaly. All hernial orifice intact. Bowel sounds normal. NEUROLOGIC: The patient has posterior cortical atrophy and has also cortical blindness but she is otherwise grossly intact. LABORATORY DATA: Her intake over the last 24 hours was 1225, output was 930. As of yesterday, her white cell count was 7500, hemoglobin 10, hematocrit 29, MCV 95, and platelet count of 163,000. Serum sodium 141, potassium 3.7, chloride 106, bicarbonate 29, anion gap of 6, BUN 15, creatinine 0.8, estimated GFR was 72 mL per minute. Her glucose was 97, calcium was 8.3. Total bilirubin, AST, ALT, alkaline phosphatase were normal. Total protein was 5.8, albumin was 2.7. Her COVID-19 rapid test was negative. ASSESSMENT: 1. Fall with resultant right femoral neck fracture, status post right hip hemiarthroplasty. 2. Posterior cortical atrophy. 3. She is legally blind. 4. Anxiety and depression. 5. Probably postoperative delirium. 6. She has spiked her temperature. PLAN: My plan is to continue with DVT prophylaxis. Continue with nicotine patches. I have already ordered Physical and Occupational Therapy to evaluate. I h1ave ordered repeat lab work and chest x-ray and blood cultures and consulted Dr. Hawk, the psychiatrist to assist with management of her delirium as she has not slept and has been restless, agitated the whole night. ISABELA LERNER MD DR: VANE/antoine JOB#: [id number] / [id number]
[2020-04-21 11:00] VITALS: BP 131/68
[2020-04-21 11:02] LABS: HEMATOCRIT 30.9 % (36.0-47.0); HEMOGLOBIN 10.4 g/dL (12.0-15.5); RED BLOOD COUNT 3.17 x10^6/uL (3.50-5.40); RED CELL DISTRIBUTION WIDTH 13.8 % (11.5-14.5); WHITE BLOOD COUNT 8.7 x10^3/uL (4.0-11.0)
[2020-04-21 11:06] LABS: CALCIUM 8.7 mg/dL (8.5-10.1); CREATININE 0.6 mg/dL (0.6-1.0); POTASSIUM 3.8 mmol/L (3.5-5.1)
[2020-04-21 11:12] LABS: ALBUMIN 2.8 g/dL (3.4-5.0); ALBUMIN/GLOBULIN RATIO 0.9 (1.0-1.7); TOTAL BILIRUBIN 0.4 mg/dL (0.2-1.0); TOTAL PROTEIN 5.9 g/dL (6.4-8.2)
[2020-04-21] MEDS: ENOXAPARIN 40 MG/0.4 ML SYRINGE. SQ SCH (11:42)
[2020-04-21 15:02] VITALS: BP 127/47
--- NOTE | 2020-04-21 16:54 | PDOC1 ---
History & Psych Evaluation Date of Service: DOS: DATE: 04/21/20 TIME: 16:53 Source: Source: Caregiver, Chart review, Patient Identification: Identification She is a 64-year-old legally blind female with no prior history of psychiatric illness. History of Present Illness: HPI: She is a 64-year-old female resident of [facility], [place], admitted with history of fall and found to have right hip fracture. She is seen for acute confusion. Initially, patient was confused and receiving multiple medications as prescribed and active in outpatient pharmacy. However, those medications were discontinued per request of patient's daughter. Since then, patient has been reporting better with respect to her mentation and sensorium. When seen, she appears pleasant and cooperative. Patient is legally blind. Due to patient's multiple medical comorbidities and legal blindness she has a baseline level of confusion. Discussed, patient's baseline mental status with her daughter and [id number]. Daughter reported that, patient was sent to [facility] couple of months ago. At that point her mental status was entirely different and much better than with she present to [facility]. However, she would not know what was patient's baseline while in [facility]. Aside from that, patient does not have any history of depression and anxiety or suicidality. When discussed with patient, she denied categorically any depression or anxiety. She denied auditory or visual hallucinations. She denied any suicidal or homicidal thoughts. There was no evidence of anjel or hypomania. She takes Seroquel for sleep and some anxiety issues as reported by her daughter . Past Psychiatric History: Per chart review history of depression and anxiety. However patient denied also denied by patient's [id number]. According to the daughter patient was prescribed Seroquel 25 mg for insomnia while at [facility], [place]. Past Medical History: Hysterectomy, bilateral wrist and arm fracture. Family History: Psychiatric family history is not known to the daughters. Social History: Social History: She is currently residing at [facility]. She does not smoke, drink alcohol or use recreational drugs Current Medications: Current Medications Current Medications Medications (Trade) Dose Ordered Sig/Debra Start Time Stop Time Status Last Admin Dose Admin Acetaminophen (Tylenol) 500 mg TID 04/18/20 19:30 04/21/20 13:00 500 MG Cefazolin Sodium (Ancef) 1 gm STK-MED ONCE 8/2/20 08:58 04/19/20 08:58 DC Cetirizine HCl (ZyrTEC) 10 mg DAILY 04/19/20 09:00 Cyclobenzaprine HCl (Flexeril) 10 mg TID 04/18/20 21:00 04/20/20 20:45 10 MG Dexamethasone Sodium Phosphate (Decadron) 4 mg STK-MED ONCE 04/19/20 10:40 04/19/20 10:40 DC Enoxaparin Sodium (Lovenox 40mg Syringe) 40 mg Q24H 04/20/20 12:00 04/21/20 11:42 40 MG Fentanyl Citrate (Fentanyl 2ml Vial) 100 mcg STK-MED ONCE 04/19/20 08:59 04/19/20 09:00 DC Fentanyl Citrate (Fentanyl 5ml Vial) 250 mcg STK-MED ONCE 04/19/20 10:06 04/19/20 10:06 DC Glycopyrrolate (Robinul) 1 mg STK-MED ONCE 04/19/20 10:40 04/19/20 10:40 DC Hydromorphone HCl (Dilaudid) 2 mg STK-MED ONCE 04/19/20 11:29 04/19/20 11:30 DC Lidocaine HCl (Lidocaine Pf 2% Vial) 5 ml STK-MED ONCE 04/19/20 10:08 04/19/20 10:08 DC Lidocaine HCl (Xylocaine-Mpf 1% 2ml Vial) 2 ml PRN 1X PRN 04/19/20 08:30 04/20/20 08:29 UNV Lorazepam (Ativan Inj) 0.5 mg PRN Q4HRS PRN 04/18/20 19:30 04/20/20 22:24 0.5 MG Morphine Sulfate (Morphine Sulfate) 1 mg PRN Q10MIN PRN 04/19/20 08:30 04/20/20 08:29 UNV Morphine Sulfate 5 mg/Ketorolac Tromethamine 30 mg/Ropivacaine 60 ml/Epinephrine HCl 0.5 mg/Sodium Chloride 100 ml @ 100 mls/hr 1X ONCE 04/19/20 08:00 04/19/20 08:59 DC 04/19/20 11:15 Neostigmine [place] (Neostigmine Methylsulfate) 5 mg STK-MED ONCE 04/19/20 10:40 04/19/20 10:41 DC Nicotine (Nicoderm Cq 21mg) 1 patch DAILY 04/19/20 10:00 04/21/20 08:04 1 PATCH Non-Formulary Medication (Cyanocobalamin (Vitamin B-12) (B-12)) 2,500 mcg BID 04/18/20 21:00 04/19/20 08:12 DC Ondansetron HCl (Zofran) 4 mg STK-MED ONCE 04/19/20 10:40 04/19/20 10:40 DC Oxycodone/ Acetaminophen (Percocet 5/325) 1 tab PRN Q4HRS PRN 04/18/20 19:30 Pantoprazole Sodium (PROTONIX VIAL for IV PUSH) 40 mg DAILYAC 04/21/20 07:30 Phenylephrine HCl (PHENYLEPHRINE in 0.9% NACL PF) 1 mg STK-MED ONCE 04/19/20 11:02 04/19/20 11:02 DC Polyethylene Glycol (miraLAX PACKET) 17 gm DAILY 04/19/20 09:00 04/20/20 08:25 17 GM Prochlorperazine Edisylate (Compazine) 5 mg PACU PRN PRN 04/19/20 08:30 04/20/20 08:29 UNV Propofol (Diprivan) 200 mg STK-MED ONCE 04/19/20 10:08 04/19/20 10:08 DC Quetiapine Fumarate (SEROquel) 25 mg HS 04/18/20 21:00 04/20/20 20:45 25 MG Ringer's Solution 1,000 ml @ 30 mls/hr Q24H 04/19/20 08:23 04/19/20 20:22 UNV Rocuronium [place] (Zemuron) 50 mg STK-MED ONCE 04/19/20 10:03 04/19/20 10:03 DC Sodium Chloride 1,000 ml @ 75 mls/hr [id number] 04/18/20 15:31 04/19/20 15:30 DC 04/18/20 21:30 75 MLS/HR Tramadol HCl (Ultram) 50 mg PRN Q6HRS PRN 04/18/20 19:45 Allergies: Allergies: Coded Allergies: codeine (Verified Adverse Reaction, Intermediate, 04/18/20) oxycodone (Verified Adverse Reaction, Intermediate, "makes me loopy", 04/19/20) Mental Status Examination: Mental Status Examination female appears her stated age. Cooperative and interactive. She is alert however oriented only to person and place. Thought processes linear. Denies suicidal or homicidal thoughts. Denies auditory or visual hallucinations. No evidence of abnormal delusions. Mood is better affect is dysthymic Insight is fair Judgment is fair Impulse control is fair Attention span and concentration fair Recent and remote memory fair ROS: 14 point review of system is otherwise negative except for stated in H&P and above. Physical Exam: Refer to Physician's note. DIRECTOR RECORDS MANAGEMENT: No focal deficit MSK: No EPS, TDK, or abnormal involuntary movements Vitals: Vitals Vital Signs Date Time Temp Pulse Resp B/P (MAP) Pulse Ox O2 Delivery O2 Flow Rate FiO2 04/21/20 15:02 97.9 88 18 127/47 (73) 99 Room Air 97.9 Labs: Labs Laboratory Tests Test 04/19/20 20:35 04/20/20 10:15 04/21/20 10:50 Urine Collection Type Unknown Urine Color Yellow Urine Clarity Clear Urine pH 5.5 (<5.0-8.0) Urine Specific [place] 1.020 (1.000-1.030) Urine Protein Negative mg/dL (NEG-TRACE) Urine Glucose (UA) Negative mg/dL (NEG) Urine Ketones (Stick) Negative mg/dL (NEG) Urine Blood Negative (NEG) Urine Nitrite Negative (NEG) Urine Bilirubin Negative (NEG) Urine Urobilinogen Dipstick 0.2 mg/dL (0.2 mg/dL) Urine Leukocyte Esterase Small (NEG) Urine RBC Occ /HPF (0-2) Urine WBC 5-10 /HPF (0-4) Urine Squamous Epithelial Cells Occ /LPF Urine Bacteria Few /HPF (0-FEW) Urine Hyaline Casts Few /HPF Urine Mucus Marked /LPF White Blood Count 7.5 x10^3/uL (4.0-11.0) 8.7 x10^3/uL (4.0-11.0) Red Blood Count 3.06 x10^6/uL (3.50-5.40) 3.17 x10^6/uL (3.50-5.40) Hemoglobin 9.9 g/dL (12.0-15.5) 10.4 g/dL (12.0-15.5) Hematocrit 29.1 % (36.0-47.0) 30.9 % (36.0-47.0) Mean Corpuscular Volume 95 fL (79-100) 97 fL (79-100) Mean Corpuscular Hemoglobin 32 pg (25-35) 33 pg (25-35) Mean Corpuscular Hemoglobin Concent 34 g/dL (31-37) 34 g/dL (31-37) Red Cell Distribution Width 13.8 % (11.5-14.5) 13.8 % (11.5-14.5) Platelet Count 163 x10^3/uL (140-400) 85 x10^3/uL (140-400) Sodium Level 141 mmol/L (136-145) 140 mmol/L (136-145) Potassium Level 3.7 mmol/L (3.5-5.1) 3.8 mmol/L (3.5-5.1) Chloride Level 106 mmol/L (98-107) 106 mmol/L (98-107) Carbon Dioxide Level 29 mmol/L (21-32) 25 mmol/L (21-32) Anion Gap 6 (6-14) 9 (6-14) Blood Urea Nitrogen 15 mg/dL (7-20) 10 mg/dL (7-20) Creatinine 0.8 mg/dL (0.6-1.0) 0.6 mg/dL (0.6-1.0) Estimated GFR (Cockcroft-Gault) 72.4 101.0 BUN/Creatinine Ratio 19 (6-20) 17 (6-20) Glucose Level 97 mg/dL (70-99) 98 mg/dL (70-99) Calcium Level 8.3 mg/dL (8.5-10.1) 8.7 mg/dL (8.5-10.1) Total Bilirubin 0.5 mg/dL (0.2-1.0) 0.4 mg/dL (0.2-1.0) Aspartate Amino Transf (AST/SGOT) 23 U/L (15-37) 35 U/L (15-37) Alanine Aminotransferase (ALT/SGPT) 21 U/L (14-59) 38 U/L (14-59) Alkaline Phosphatase 65 U/L (46-116) 81 U/L (46-116) Total Protein 5.8 g/dL (6.4-8.2) 5.9 g/dL (6.4-8.2) Albumin 2.7 g/dL (3.4-5.0) 2.8 g/dL (3.4-5.0) Albumin/Globulin Ratio 0.9 (1.0-1.7) 0.9 (1.0-1.7) Laboratory Tests Test 04/21/20 10:50 White Blood Count 8.7 x10^3/uL (4.0-11.0) Red Blood Count 3.17 x10^6/uL (3.50-5.40) Hemoglobin 10.4 g/dL (12.0-15.5) Hematocrit 30.9 % (36.0-47.0) Mean Corpuscular Volume 97 fL (79-100) Mean Corpuscular Hemoglobin 33 pg (25-35) Mean Corpuscular Hemoglobin Concent 34 g/dL (31-37) Red Cell Distribution Width 13.8 % (11.5-14.5) Platelet Count 85 x10^3/uL (140-400) Sodium Level 140 mmol/L (136-145) Potassium Level 3.8 mmol/L (3.5-5.1) Chloride Level 106 mmol/L (98-107) Carbon Dioxide Level 25 mmol/L (21-32) Anion Gap 9 (6-14) Blood Urea Nitrogen 10 mg/dL (7-20) Creatinine 0.6 mg/dL (0.6-1.0) Estimated GFR (Cockcroft-Gault) 101.0 BUN/Creatinine Ratio 17 (6-20) Glucose Level 98 mg/dL (70-99) Calcium Level 8.7 mg/dL (8.5-10.1) Total Bilirubin 0.4 mg/dL (0.2-1.0) Aspartate Amino Transf (AST/SGOT) 35 U/L (15-37) Alanine Aminotransferase (ALT/SGPT) 38 U/L (14-59) Alkaline Phosphatase 81 U/L (46-116) Total Protein 5.9 g/dL (6.4-8.2) Albumin 2.8 g/dL (3.4-5.0) Albumin/Globulin Ratio 0.9 (1.0-1.7) Diagnosis: Diagnosis: Acute delirium, likely multifactorial including medications, hypoactive type Unspecified depression Unspecified anxiety Assessment: female appears her stated age. Struggling with acute delirium likely multifactorial including medications. Recommending to continue Seroquel 25 mg at bedtime that helps with insomnia as well. Avoid sedatives and hypnotics that may worsen delirium. Plan: Continue Seroquel 25 mg at bedtime. Risk, benefits, alternatives of the treatment are discussed. Daughter wants minimal and simplified medication regimen. Adverse drug reaction of the medication discussed. She is in agreement with plan and voiced understanding. Applied delirium protocol. Avoid sundowning during the day. Thank you for involving inpatient care. TREY TAPIA MD Apr 21, 2020 16:54
[2020-04-21 19:29] VITALS: BP 125/77
[2020-04-21] MEDS: QUEtiapine 25 MG TABLET. PO SCH (20:20)
[2020-04-21 23:00] VITALS: BP 127/72
[2020-04-22 03:00] VITALS: BP 132/79
[2020-04-22 07:00] VITALS: BP 126/70
[2020-04-22] MEDS: CETIRIZINE HCL 10 MG TABLET. PO SCH (09:00)
[2020-04-22] MEDS: CYCLOBENZAPRINE 10 MG TABLET. PO SCH ×2 (09:00→14:00)
[2020-04-22] MEDS: NICOTINE 21MG PATCH. TD SCH (10:06)
[2020-04-22] MEDS: POLYETHYLENE GLYCOL 3350 17 GM PACKET. PO SCH (10:07)
[2020-04-22] MEDS: PANTOPRAZOLE IV PUSH 40 MG VIAL. IVP SCH (10:07)
[2020-04-22] MEDS: ACETAMINOPHEN 500 MG TABLET PO SCH ×2 (10:07→14:08)
[2020-04-22 11:00] VITALS: BP 124/81
[2020-04-22] MEDS ORDERED: ENOX40DI SQ (11:00)
--- NOTE | 2020-04-22 11:04 | NUR ---
SW following. Discussed with RN and Dr. Jordan, pt being discharged back to [facility] today. SW to fax dc orders, awaiting stretcher transportation time. SW will continue to follow. Addendum: 04/22/20 at 1142 by NATALIA ARANGO SW Discharge orders faxed. Transportation set up by [facility] for [facility]. RN and family notified. No further SW needs.
[2020-04-22] MEDS ORDERED: OXYC1TAB15 PO (11:05)
--- NOTE | 2020-04-22 11:07 | SNU/HH DC ---
DISCHARGE ORDERS DISCHARGE INFORMATION: DISCHARGE DATE: Apr 22, 2020 FINAL DIAGNOSIS Problems Medical Problems: (1) Closed right hip fracture Status: Acute CONDITION ON DISCHARGE: Stable CODE STATUS: Code Status: Full PRISON: SNF STAY <30 DAYS: Yes POST DISCHARGE ORDERS: ACTIVITY ORDERS: Activity as tolerated DIET AFTER DISCHARGE: Regular TREATMENT/EQUIPMENT ORDERS: Physical Therapy For: Evalulation/Treatment Occupational Therapy For: Evaluation/Treatment DISCHARGE MEDICATIONS: Home Meds Active Scripts Oxycodone/Apap 5-325 (PERCOCET 5-325 MG TABLET ) 1 Each Tablet, 1 TAB PO Q4H PRN for PAIN MDD 4 Tablet(s) for 30 Days, #180 TAB 0 Refills Prov:ISABELA LERNER MD 04/22/20 Enoxaparin Sodium (LOVENOX) 40 Mg/0.4 Ml Disp.syrin, 40 MG SQ DAILY for ANTI-COAGULANT for 14 Days, DIS.SYR Prov:ISABELA LERNER MD 04/22/20 Reported Medications Sennosides (SENNA) 8.8 Mg/5 Ml Syrup, 8.8 MG PO BID PRN for prn, MISC 04/19/20 Polyvinyl Alcohol (POLYVINYL ALCOHOL) 15 Ml Drops, 1 DROP EACHEYE TID for dry eye for 30 Days, #15 ML 0 Refills 04/19/20 Bupropion Hcl (BUPROPION HCL SR) 100 Mg Tablet.er, 100 MG PO DAILY for depression, TAB.SR 04/19/20 Phenylephrine Hcl/[place] Butter (PREPARATION H SUPPOSITORY) 1 Each Supp.rect, 1 EACH RC DAILY PRN for prn, SUPP.RECT 04/19/20 Acetaminophen (ACETAMINOPHEN) 500 Mg Tablet, 1000 MG PO TID PRN for prn, TAB 04/19/20 Acetaminophen (TYLENOL) 325 Mg Tablet, 500 MG PO TID for pain , TAB 08/09/19 Cetirizine Hcl (ZYRTEC) 10 Mg Tablet, 10 MG PO DAILY for allergies , TAB 08/09/19 Quetiapine Fumarate (SEROQUEL) 25 Mg Tablet, 25 MG PO HS for anxiety and agitation , TAB 08/09/19 Polyethylene Glycol 3350 (MIRALAX) 17 Gm Powd.pack, 1 PKT PO DAILY for constipation , PKT 08/09/19 Cyclobenzaprine Hcl (CYCLOBENZAPRINE HCL) 10 Mg Tablet, 10 MG PO TID for muscle relaxant , TAB 08/09/19 Cyanocobalamin (Vitamin B-12) (B-12) 2,500 Mcg Tab.subl, 2500 MCG SL BID for vitamin , TAB 08/09/19 ISABELA LERNER MD Apr 22, 2020 11:07
[2020-04-22] MEDS ORDERED: APIX2.5T PO (11:17)
--- NOTE | 2020-04-22 11:50 | DS ---
DATE OF DISCHARGE: HISTORY OF PRESENT ILLNESS: The patient is a 64-year-old female patient, who was admitted after she fell at [facility] sustaining right femoral neck fracture for which she underwent right hip hemiarthroplasty successfully. She did very well yesterday and was out of the bed to the chair and sat there for about 4 hours. She is more awake, alert, although continued to have problem with sleep at night time. She was seen in consultation by the psychiatrist and a decision was made to treat her with Seroquel and avoid all other sedatives and she remained stable. She did spike a temperature the day after the surgery, but so far, she has been afebrile and hemodynamically stable. Her white cell count was normal at 8.7. Her chemistry was unremarkable. Urinalysis also was unremarkable and her urine culture was negative and blood cultures are so far negative after 1 day and she was evaluated by physical therapy, who recommended obviously halfway facility for rehabilitation. A decision was made to discharge her back to [facility] in [place] to continue with pain management, DVT prophylaxis, and to start the process of rehabilitation. PHYSICAL EXAMINATION: GENERAL: When I saw her this morning, she looked well and was clearly in no apparent respiratory distress. She was somewhat pale, but no jaundice, cyanosis or thyromegaly. No jugular venous distention. No limb edema. VITAL SIGNS: Her heart rate was 92, blood pressure was 126/70, temperature 98, respiratory rate was 19, and oxygen saturation was 97%. HEAD, EYES, EARS, NOSE, AND THROAT: Normocephalic, atraumatic. NECK: Supple. HEART: Showed normal first and second heart sounds. No gallop or murmur. CHEST: Clear to auscultation. No crepitation or rhonchi. ABDOMEN: Distended, soft, and nontender. NEUROLOGIC: She is awake, alert, but obviously confused. All her cranial nerves intact. She moves extremities without difficulty. She obviously requires 2-person assist to get out of the bed to the chair. LABORATORY DATA: Her lab work this morning showed a white cell count of 8700, hemoglobin 10, hematocrit 30, MCV 97 and platelet count of 85,000. Her chemistry showed a serum sodium 140, potassium 3.8, chloride 106, bicarbonate 25, anion gap of 9, BUN 10, creatinine 0.6, estimated GFR was 101, glucose was 98, and calcium was 8.7. Total bilirubin, AST, ALT, and alkaline phosphatase were normal. Total protein was 5.9, albumin was 2.8. Her coagulation showed prothrombin time, INR and aPTT normal. Urinalysis showed the urine was yellow, clear with a pH of 5.5, specific gravity of 1.020. The urine was negative for protein, glucose, ketones, blood, or nitrite. Small amount of leukocyte esterase, occasional rbc's, 5-10 wbc's, few bacteria. Her coronavirus by PCR was not detected and EEVI-brzrvfjqosu-2 rapid testing was negative. She will be discharged to [place] to continue on oxycodone/APAP 5/325 one tablet every 4 hours as needed, Tylenol 500 mg 3 times a day, Wellbutrin 100 mg once a day, cetirizine 10 mg once a day, cyanocobalamin 2500 mcg sublingually twice a day, cyclobenzaprine 10 mg 3 times a day, phenylephrine cocoa butter (Preparation-H) suppositories rectally daily p.r.n., polyethylene glycol 17 g daily, polyvinyl alcohol 1 drop to both eyes 3 times a day, quetiapine fumarate for Seroquel 25 mg at bedtime for anxiety and agitation, and senna 1 tablet twice a day. FINAL DISCHARGE DIAGNOSES: 1. Fall with resultant right femoral neck fracture, status post right hip hemiarthroplasty. 2. She has thrombocytopenia and therefore I will discontinue her Lovenox. I will start her on apixaban 2.5 mg twice a day for DVT prophylaxis. Other medical problems include: A. Posterior cortical atrophy. B. She is legally blind. C. Anxiety and depression. D. Postoperative delirium. E. She did spike a temperature once, but she has been afebrile for more than 24 hours now. Her urine culture was negative. Her chest x-ray was clear. Her white cell count is normal and her blood cultures showed no growth after 24 hours. ISABELA LERNER MD DR: VANE/antoine JOB#: [id number] / [id number]
[2020-04-22] MEDS: ENOXAPARIN 40 MG/0.4 ML SYRINGE. SQ SCH (12:44)
--- NOTE | 2020-04-22 13:53 | NUR ---
Gave report to Leslie STOUT at [facility] for receiving care on this patient. Leaving via K. Family aware and visiting.
--- NOTE | 2020-04-23 12:07 | PATHOLOGY ---
[facility] Accession Number: [id number] . 01 Material submitted: . hip - RIGHT HIP BONE AND TISSUE. Modifiers: right . 01 Clinical history: . Closed right femoral neck fracture; right hip fracture . 02 Diagnosis: Femoral head and separate segments of bone, right hip hemiarthroplasty: - Focal fragmentation of bony trabeculae with recent intertrabecular hemorrhage consistent with fracture. (JPM:[facility] 04/22/2020) [facility] 04/23/2020 0825 Local . 02 Comment: There is no evidence of malignancy. (JP:[facility] 04/22/2020) . 02 Electronically signed: . Evans Forrester MD, Pathologist NPI- [id number] . 01 Gross description: . The specimen is received in formalin, labeled "Hali Collins, R hip bone and tissue". Received is a femoral head measuring 4.5 x 4.5 x 4.0 cm in greatest dimensions. The articular surface is pale gill, smooth and glistening in appearance. Sectioning reveals yellow-gill cut surfaces with the distal most aspect displaying a hemorrhagic appearance, consistent with fracture site. The specimen is submitted representatively in cassette A1, following decalcification. . Also received within the specimen container are additional fragments of red-brown bone, consistent with fractured femoral neck, measuring 5.3 x 5.2 x 2.8 cm in aggregate dimensions. The specimen is submitted representatively in cassette A2, following decalcification. (CAA; 04/20/2020) QAC/QAC 04/20/2020 1743 Local . 02 Pathologist provided ICD-10: S72.001A . 02 CPT . 349358, [id number] Specimen Comment: A courtesy copy of this report has been sent to [phone] Specimen Comment: [id number], Specimen Comment: Report sent to ,DR LERNER / DR LOGAN Performed at: [address], [place] [id number] MD Vinod Mendes MD Phone: [phone] Performed at: 02 [facility] [address], [place] [id number] MD Evans Forrester MD Phone: [phone]
== END 2020-04-22 18:32 | DRG 470 ==
LOC: ER 14:31 → ED HOLD 16:18 → 4 NORTH 17:35
PROVIDERS: ADMIT Internal Medicine; ATTEND Internal Medicine
PROC: 0SRR019 Replacement of Right Hip Joint, Femoral Surface with Metal Synthetic Substitute, Cemented, Open Approach (ICD-10-PCS; principal; 2020-04-19 09:00)
DX: S72.001A Fracture of unspecified part of neck of right femur, initial encounter for closed fracture (principal); F05 Delirium due to known physiological condition; Z20.828 Contact with and (suspected) exposure to other viral communicable diseases; D69.6 Thrombocytopenia, unspecified; F03.90 Unspecified dementia, unspecified severity, without behavioral disturbance, psychotic disturbance, mood disturbance, and anxiety; F32.9 Major depressive disorder, single episode, unspecified; F41.9 Anxiety disorder, unspecified; G47.00 Insomnia, unspecified; H54.8 Legal blindness, as defined in USA; W18.09XA Striking against other object with subsequent fall, initial encounter; Z90.710 Acquired absence of both cervix and uterus; W18.39XA Other fall on same level, initial encounter; Y93.89 Activity, other specified; Y92.89 Other specified places as the place of occurrence of the external cause; Y99.8 Other external cause status; G31.9 Degenerative disease of nervous system, unspecified
CPT/HCPCS: 36415; 71045; 72170; 73502; 80053; 81001; 83735; 85025; 85027; 85610; 85730; 86850; 86900; 86901; 87040; 87086; 87426; 88305; 88311; 93005; 96374; 96375; A7015; C1713; C9113; J0690; J1100; J1170; J1650; J2060; J2370; J2405; J2704; J2710; J3010; J3490; J7030; J7120; 97110-GP; 97530-GO; 97530-GP; 97535-GO; 99285-25; G0378; U0003-CS

== ENCOUNTER 2020-04-28 17:11 | Inpatient (IN) | payer MEDICARE, MEDICAID ==
[~2020-04-28] VITALS: Ht 167.6 cm; Wt 50.8 kg
[~2020-04-28 17:11] MED LIST changes: +ACET500T68 PO; +APIX2.5T PO; +BUPR100T8 PO; +ENOX40DI SQ; +OXYC1TAB15 PO; +PHEN1SUP75 RC; +POLY15DR20 EACHEYE; +SENN8.8S5 PO
[2020-04-28 18:19] LABS: BASO % 0 % (0-3); EOS # 0.1 x10^3/uL (0.0-0.7); EOS % 1 % (0-3); HEMATOCRIT 31.3 % (36.0-47.0); HEMOGLOBIN 10.7 g/dL (12.0-15.5); LYMPH # 2.2 x10^3/uL (1.0-4.8); LYMPH % 21 % (24-48); MEAN CORPUSCULAR HEMOGLOBIN 32 pg (25-35); MEAN CORPUSCULAR HGB CONC 34 g/dL (31-37); MEAN CORPUSCULAR VOLUME 94 fL (79-100); MONO # 0.6 x10^3/uL (0.0-1.1); MONO % 6 % (0-9); NEUT # 7.8 x10^3/uL (1.8-7.7); NEUT % 73 % (31-73); PLATELET COUNT 383 x10^3/uL (140-400); RED BLOOD COUNT 3.31 x10^6/uL (3.50-5.40); RED CELL DISTRIBUTION WIDTH 13.5 % (11.5-14.5); WHITE BLOOD COUNT 10.7 x10^3/uL (4.0-11.0)
[2020-04-28 18:22] LABS: BILIRUBIN,URINE SMALL (NEG); CLARITY,URINE TURBID; COLOR,URINE AMBER; NITRITE,URINE NEGATIVE (NEG); PROTEIN,URINE >=300 mg/dL (NEG-TRACE)
--- NOTE | 2020-04-28 18:24 | PHYS DOC ---
Past Medical History Past Medical History: Anxiety, Dementia, Depression, UTI, Other Additional Past Medical Histor: baseline A&O x 1, posterial cortical atrophy Past Surgical History: Hysterectomy, Other Additional Past Surgical Histo: bilateral wrist and arm Smoking Status: Current Every Day Smoker Alcohol Use: None Drug Use: None General Adult EDM: Chief Complaint: URINE CATHETER PROBLEM HPI: HPI: Patient is a 64 year old female who presents with a chief complaint of P[place] catheter problem. Patient is at a care home and is noted to have pus around her Perkins area the Perkins was changed and the patient has draining of her bladder now patient has a history of dementia so history physical review of systems is limited by that. There is been no fever vomiting. Review of Systems: Review of Systems: Review of systems unobtainable due to dementia. Patient denies any pain. No reports of fever vomiting. Heart Score: Risk Factors: Risk Factors: DM, Current or recent (<one month) smoker, HTN, HLP, family history of CAD, obesity. Risk Scores: Score 0 - 3: 2.5% MACE over next 6 weeks - Discharge Home Score 4 - 6: 20.3% MACE over next 6 weeks - Admit for Clinical Observation Score 7 - 10: 72.7% MACE over next 6 weeks - Early Invasive Strategies Allergies: Allergies: Allergies Coded Allergies Type Severity Reaction Last Updated Verified codeine Adverse Reaction Intermediate 04/18/20 Yes oxycodone Adverse Reaction Intermediate "makes me loopy" 04/19/20 Yes Physical Exam: PE: Constitutional: Awake and alert no acute distress nontoxic-appearing HENT: Normocephalic, atraumatic, bilateral external ears normal, no trismus, nose normal. [] Eyes: PERRLA, EOMI, conjunctiva normal, no discharge. [] Neck: Normal range of motion, no tenderness, supple, no stridor. [] Cardiovascular:Heart rate regular rhythm, peripheral pulses intact cap refill brisk Lungs & Thorax: Bilateral breath sounds clear no respiratory distress Abdomen: Bowel sounds normal, soft, no tenderness, no masses, no pulsatile masses. [] Skin: Warm, dry, no erythema, no rash. [] Back: No tenderness, no CVA tenderness. [] Extremities: No tenderness, no cyanosis, no clubbing, ROM intact, no edema. [] Neurologic: Alert and oriented X1, normal motor function, normal sensory function, no focal deficits noted. [] Psychologic: Affect normal, judgement normal, mood normal. [] Current Patient Data: Labs: Laboratory Tests Test 04/28/20 17:20 04/28/20 18:05 Urine Collection Type Unknown Urine Color Karla Urine Clarity Turbid Urine pH 8.0 Urine Specific [place] 1.025 Urine Protein >=300 mg/dL Urine Glucose (UA) Negative mg/dL Urine Ketones (Stick) 40 mg/dL Urine Blood Large Urine Nitrite Negative Urine Bilirubin Small Urine Urobilinogen Dipstick 1.0 mg/dL Urine Leukocyte Esterase Large Urine RBC Tntc /HPF Urine WBC Tntc /HPF Urine Squamous Epithelial Cells Few /LPF Urine Bacteria Many /HPF Urine Mucus Slight /LPF White Blood Count 10.7 x10^3/uL Red Blood Count 3.31 x10^6/uL Hemoglobin 10.7 g/dL Hematocrit 31.3 % Mean Corpuscular Volume 94 fL Mean Corpuscular Hemoglobin 32 pg Mean Corpuscular Hemoglobin Concent 34 g/dL Red Cell Distribution Width 13.5 % Platelet Count 383 x10^3/uL Neutrophils (%) (Auto) 73 % Lymphocytes (%) (Auto) 21 % Monocytes (%) (Auto) 6 % Eosinophils (%) (Auto) 1 % Basophils (%) (Auto) 0 % Neutrophils # (Auto) 7.8 x10^3/uL Lymphocytes # (Auto) 2.2 x10^3/uL Monocytes # (Auto) 0.6 x10^3/uL Eosinophils # (Auto) 0.1 x10^3/uL Basophils # (Auto) 0.0 x10^3/uL Sodium Level 141 mmol/L Potassium Level 3.9 mmol/L Chloride Level 104 mmol/L Carbon Dioxide Level 23 mmol/L Anion Gap 14 Blood Urea Nitrogen 24 mg/dL Creatinine 0.9 mg/dL Estimated GFR (Cockcroft-Gault) 63.2 BUN/Creatinine Ratio 27 Glucose Level 87 mg/dL Lactic Acid Level 1.3 mmol/L Calcium Level 9.3 mg/dL Total Bilirubin 0.5 mg/dL Aspartate Amino Transf (AST/SGOT) 22 U/L Alanine Aminotransferase (ALT/SGPT) 48 U/L Alkaline Phosphatase 111 U/L C-Reactive Protein, Quantitative 20.8 mg/L Total Protein 7.0 g/dL Albumin 3.6 g/dL Albumin/Globulin Ratio 1.1 Current Medications Medications (Trade) Dose Ordered Sig/Debra Route PRN Reason Start Time Stop Time Status Last Admin Dose Admin Ceftriaxone Sodium (Rocephin) 1 gm 1X ONCE IVP 04/28/20 19:30 04/28/20 19:31 DC 04/28/20 19:34 Sodium Chloride 1,000 ml @ 1,000 mls/hr 1X ONCE IV 04/28/20 19:30 04/28/20 20:29 DC 04/28/20 19:34 Ondansetron HCl (Zofran) 4 mg PRN Q8HRS PRN IV NAUSEA/VOMITING 04/28/20 19:45 04/29/20 19:44 Laboratory Tests Test 04/28/20 18:05 White Blood Count 10.7 x10^3/uL (4.0-11.0) Red Blood Count 3.31 x10^6/uL (3.50-5.40) L Hemoglobin 10.7 g/dL (12.0-15.5) L Hematocrit 31.3 % (36.0-47.0) L Mean Corpuscular Volume 94 fL (79-100) Mean Corpuscular Hemoglobin 32 pg (25-35) Mean Corpuscular Hemoglobin Concent 34 g/dL (31-37) Red Cell Distribution Width 13.5 % (11.5-14.5) Platelet Count 383 x10^3/uL (140-400) Neutrophils (%) (Auto) 73 % (31-73) Lymphocytes (%) (Auto) 21 % (24-48) L Monocytes (%) (Auto) 6 % (0-9) Eosinophils (%) (Auto) 1 % (0-3) Basophils (%) (Auto) 0 % (0-3) Neutrophils # (Auto) 7.8 x10^3/uL (1.8-7.7) H Lymphocytes # (Auto) 2.2 x10^3/uL (1.0-4.8) Monocytes # (Auto) 0.6 x10^3/uL (0.0-1.1) Eosinophils # (Auto) 0.1 x10^3/uL (0.0-0.7) Basophils # (Auto) 0.0 x10^3/uL (0.0-0.2) Laboratory Tests 04/28/20 18:05 Vital Signs: Vital Signs Date Time Temp Pulse Resp B/P (MAP) Pulse Ox O2 Delivery O2 Flow Rate FiO2 04/28/20 17:12 98.7 82 18 108/80 (89) 100 Room Air 98.7 EKG: EKG: [] Radiology/Procedures: Radiology/Procedures: [] Course & Med Decision Making: Course & Med Decision Making Pertinent Labs and Imaging studies reviewed. (See chart for details) [] 64-year-old female presents with a significantly tract infection. Patient's white count is borderline elevated. Patient will be admitted to Dr. tilley for further evaluation treatment as she needs IV antibiotics. Dragon Disclaimer: Dragon Disclaimer: This electronic medical record was generated, in whole or in part, using a voice recognition dictation system. Departure Departure Impression: Primary Impression: UTI (urinary tract infection) Disposition: ADMITTED INPATIENT Admitting Physician: DEBI (VIOLET) Condition: STABLE Referrals: DOUG FRANKS MD (PCP) Justicifation of Admission Dx: Justifications for Admission: Justification of Admission Dx: Yes Fracture: Fracture [address] MD Apr 28, 2020 18:23
[2020-04-28 18:28] LABS: CALCIUM 9.3 mg/dL (8.5-10.1); CREATININE 0.9 mg/dL (0.6-1.0); GFR 63.2; POTASSIUM 3.9 mmol/L (3.5-5.1)
[2020-04-28 18:34] LABS: ALBUMIN 3.6 g/dL (3.4-5.0); ALBUMIN/GLOBULIN RATIO 1.1 (1.0-1.7); C-REACTIVE PROTEIN 20.8 mg/L (0-3.3); TOTAL BILIRUBIN 0.5 mg/dL (0.2-1.0)
[2020-04-28 18:42] LABS: BACTERIA,URINE MANY /HPF (0-FEW); RBC,URINE TNTC /HPF (0-2); SQUAMOUS EPITHELIAL CELL,UR FEW /LPF; WBC,URINE TNTC /HPF (0-4)
[2020-04-28] MEDS ORDERED: cefTRIAXone IV Push 1 GM VIAL. IVP ONE (19:30)
[2020-04-28] MEDS ORDERED: IV NORMAL SALINE 1000ML BAG 1,000 ML IV ONE (19:30)
[2020-04-28] MEDS ORDERED: ONDANSETRON PF 4 MG/2 ML VIAL. IV PRN (19:45)
[2020-04-28 23:55] VITALS: BP 126/76
[2020-04-29 03:20] VITALS: BP 125/70
[2020-04-29 07:00] VITALS: BP 101/61
[2020-04-29] MEDS ORDERED: ACETAMINOPHEN 500 MG TABLET PO PRN (08:00)
[2020-04-29] MEDS ORDERED: PHENYLEPHRINE SUPP.RECT. RC PRN (08:00)
[2020-04-29] MEDS ORDERED: SENNOSIDES 8.6 MG TABLET PO PRN (08:15)
[2020-04-29] MEDS: APIXABAN 2.5 MG TABLET. PO SCH ×2 (08:54→22:07)
[2020-04-29] MEDS: ACETAMINOPHEN 500 MG TABLET PO SCH ×4 (08:55→22:11)
[2020-04-29] MEDS ORDERED: CYCLOBENZAPRINE 10 MG TABLET. PO SCH (09:00)
[2020-04-29] MEDS ORDERED: POLYVINYL ALCOHOL 1.4% OPHTH SOLUTION 15ML BOTTLE. OU SCH (09:00)
[2020-04-29] MEDS ORDERED: buPROPion SR 100 MG TABLET.SA. PO SCH (09:00)
[2020-04-29] MEDS ORDERED: CETIRIZINE HCL 10 MG TABLET. PO SCH (09:00)
[2020-04-29] MEDS ORDERED: POLYETHYLENE GLYCOL 3350 17 GM PACKET. PO SCH (09:00)
[2020-04-29] MEDS ORDERED: CYANOCOBALAMIN (VITAMIN B-12) 1,000 MCG TABLET. PO SCH (09:00)
[2020-04-29 11:00] VITALS: BP 114/58
[2020-04-29] MEDS ORDERED: POLYETHYLENE GLYCOL 3350 17 GM PACKET. PO PRN (12:15)
[2020-04-29] MEDS ORDERED: POLYVINYL ALCOHOL 1.4% OPHTH SOLUTION 15ML BOTTLE. OU PRN (12:15)
[2020-04-29] MEDS: DRONABINOL 2.5 MG CAPSULE. PO SCH ×3 (12:30→22:06)
[2020-04-29 15:00] VITALS: BP 105/55
[2020-04-29] MEDS: LORazepam 0.5 MG TABLET PO PRN (15:08)
--- NOTE | 2020-04-29 15:28 | NUR ---
SW following. Chart reviewed, per community planner note - family wanting SNU if possible for pt upon return to [facility]. ELODIA noticed no PT/OT ordered - discussed with RN, PT/OT will be ordered. ELODIA verified with Chester at [facility], a COVID-19 test will be required for return to [facility] - notified RN of this also, COVID-19 test will be ordered.
[2020-04-29] MEDS: cefTRIAXone IV Push 1 GM VIAL. IVP SCH (18:10)
--- NOTE | 2020-04-29 18:26 | NUR ---
Pt straight catheterized and drained 250 mLs of urine Addendum: 04/29/20 at 1828 by NEEMA WILCOX RN RN Amended: Links added.
[2020-04-29 19:00] VITALS: BP 139/62
[2020-04-29] MEDS: QUEtiapine 25 MG TABLET. PO SCH (22:07)
[2020-04-29 22:59] VITALS: BP 137/56
--- NOTE | 2020-04-30 01:09 | NUR ---
NIKKI IS BEING AGGRESSIVE AND JANES SMITH LET USE ASSESS HER PER AREA. FIRST BLADDER SCAN WAS 302 . LCRN
[2020-04-30 03:08] VITALS: BP 134/67
[2020-04-30 07:00] VITALS: BP 155/83
[2020-04-30] MEDS ORDERED: ANTI-COAG MONITOR BY PHARMACY. MC PRN (08:30)
[2020-04-30] MEDS: ACETAMINOPHEN 500 MG TABLET PO SCH ×3 (08:32→21:03)
[2020-04-30] MEDS: APIXABAN 2.5 MG TABLET. PO SCH ×2 (08:32→21:03)
--- NOTE | 2020-04-30 10:44 | HP ---
ADMIT DATE: 04/28/2020 HISTORY OF PRESENT ILLNESS: The patient is a 64-year-old female patient, a resident at [facility] in [place], who was brought to the Emergency Room with apparently discomfort around her Perkins catheter. The nursing staff at the correction noted that she had pus around her Perkins catheter area and was changed; and therefore, she was brought to the Emergency Room for further evaluation and treatment. She was found to have UTI. Her urinalysis showed that she was positive for leukocyte esterase, and there are too numerous to count wbc's and many bacteria and was admitted for inpatient treatment with IV antibiotic. The patient herself has posterior cortical atrophy and impairment in communication. PAST MEDICAL HISTORY: Significant for anxiety, depression. She is legally blind. She has posterior cortical atrophy. She also has osteoarthritis and also osteoporosis. PAST SURGICAL HISTORY: Significant for hysterectomy and bilateral wrist and arm fractures that she sustained after she fell. FAMILY HISTORY: Unobtainable. SOCIAL HISTORY: She is currently residing at [facility]. She does not smoke, drink alcohol or use recreational drugs. Her daughter is her DPOA. REVIEW OF SYSTEMS: Unobtainable. PHYSICAL EXAMINATION: GENERAL: On arrival to the Emergency Room, she looked well and was clearly in no apparent respiratory distress, slightly pale, but no jaundice, cyanosis or thyromegaly. No jugular venous distention. No lower limb edema. VITAL SIGNS: Her heart rate was 82, blood pressure was 108/80, temperature was 98.7, respiratory rate was 18, and oxygen saturation was 100% on room air. HEAD, EYES, EARS, NOSE AND THROAT: Showed normocephalic, atraumatic. NECK: Supple. HEART: Showed normal first and second heart sounds. No gallop, rub or murmur. CHEST: Clear to auscultation. No crepitation or rhonchi. ABDOMEN: Distended, soft, nontender. NEUROLOGIC: She is legally blind with impairment in communication, but grossly all her cranial nerves are intact. EXTREMITIES: She moves extremities without difficulty. She has fallen and sustained right hip fracture for which she underwent right hip hemiarthroplasty on 04/19/2020 and she was back to [facility] to continue the process of rehabilitation. LABORATORY DATA: While in the Emergency Room, her lab work showed that her white cell count was 10,700, hemoglobin 10.7, hematocrit 31.3, MCV 94 and platelet count of 383,000. Her serum sodium was 141, potassium 3.9, chloride 104, bicarbonate 23, anion gap of 14, BUN 24, creatinine 0.9, estimated GFR was 63 mL per minute. Her glucose was 87, lactic acid was 1.3, calcium was 9.3. Total bilirubin, AST, ALT, alkaline phosphatase were normal. C-reactive protein was 20.8. Total protein was 7, albumin was 3.6. Urinalysis showed the urine was teodora, turbid in color with a pH of 8, specific gravity of 1.025 with large amount of protein, negative for glucose and trace of ketones, large amount of blood, negative for nitrite. There was large amount of leukocyte esterase, too numerous to count rbc's and too numerous to count wbc's and many bacteria. ASSESSMENT AND PLAN: The patient was basically admitted with urinary tract infection. She was started on IV Rocephin. We will continue with all other medication. Obviously, we will discuss with her daughter in details, as she wants to be informed about in her medication and once we have the culture and sensitivity, we will switch her to oral antibiotic and we will consult the Physical and Occupational Therapy. ISABELA LERNER MD DR: VANE/antione JOB#: [id number] / [id number]
[2020-04-30 11:00] VITALS: BP 134/72
--- NOTE | 2020-04-30 11:16 | PN ---
DATE: 04/30/2020 SUBJECTIVE: The patient is resting, slightly propped up in bed, no apparent distress. She is definitely more awake than yesterday, interactive, although, there is obviously a communication deficit. She did require straight catheterization yesterday. PHYSICAL EXAMINATION: GENERAL: When I examined her this morning, she looked well and was clearly in no apparent respiratory distress, pale, no jaundice, cyanosis or thyromegaly. No jugular venous distention. No limb edema. VITAL SIGNS: Her heart rate was 98, blood pressure 155/83, temperature 97.5, respiratory rate was 18 and oxygen saturation was 99%. HEENT: Examination of the head, eyes, ears, nose, and throat showed normocephalic, atraumatic. NECK: Supple. HEART: Showed normal first and second heart sounds. No gallop or murmur. CHEST: Clear to auscultation. No crepitation or rhonchi. ABDOMEN: Distended, soft, nontender. NEUROLOGIC: She is legally blind, but otherwise all her cranial nerves are intact. She moves extremities without difficulty, although obviously she has underwent right hip hemiarthroplasty and she stayed in the process of rehabilitation. PLAN: I again spoke with physical therapist. I also spoke with the nursing staff to stand her 3 times a day and straight catheter if need be and to encourage mobility and transfer to even at bedside commode if possible or feasible. ISABELA LERNER MD DR: VANE/antoine JOB#: [id number] / [id number]
--- NOTE | 2020-04-30 11:20 | PN ---
DATE: 04/29/2020 SUBJECTIVE: The patient was admitted with urinary tract infection and was started on Rocephin and also urine retention that initially required indwelling Perkins catheter and because of the infection her daughter wanted to discontinue the Perkins catheter and I went through the list of her medication that she wanted us to discontinue that included her artificial tears, cyanocobalamin, polyethylene glycol, Flexeril, cetirizine as well as Wellbutrin, senna and her hemorrhoidal suppository as well as lorazepam and ondansetron. They were all discontinued. She wanted that to be in minimal amount of sedation. We did start her on lorazepam 0.25 mg every 8 hours. She agreed to continue with Seroquel at night time for agitation and because of her poor appetite we started her on Marinol 2.5 mg twice a day. PHYSICAL EXAMINATION: GENERAL: When I examined her, she looked well and was clearly in no apparent respiratory distress. No pallor, jaundice or cyanosis. No lymphadenopathy or thyromegaly. No jugular venous distention. No limb edema. VITAL SIGNS: Her heart rate was 83, blood pressure was 105/55, temperature was 97.9, respiratory rate was 16, and oxygen saturation was 100% on room air. HEAD, EYES, EARS, NOSE AND THROAT: Normocephalic, atraumatic. NECK: Supple. HEART: Showed normal first and second heart sounds. No gallop, rub or murmur. CHEST: Clear to auscultation. No crepitation or rhonchi. ABDOMEN: Distended, soft, nontender. No guarding or rigidity. No organomegaly. All hernial orifice intact. Bowel sounds normal. NEUROLOGIC: She was legally blind, but all other cranial nerves are intact. She moves extremities without difficulty. She still continued to obviously have poor mobility because of recent fall and fracture of the right hip for which she underwent right hip hemiarthroplasty. Her intake and output are incompletely recorded. LABORATORY DATA: She has no lab work done. However, her urinalysis was suggestive of urinary tract infection and as I stated she was admitted for inpatient treatment for urinary tract infection and she has posterior cortical atrophy. She is legally blind, has recent fall with fracture of the right hip for which she underwent right hip hemiarthroplasty. PLAN: Discontinue all the medication that I discussed with her daughter. I did start her on Marinol to improve her appetite and cut down Ativan to 0.25 mg 3 times a day. We will scan her bladder 2 times a day and straight cath her if she is retaining. I have already consulted the physical and occupational therapy. We will await for the urine culture and once the culture becomes available and we can switch her to oral antibiotics, she can be discharged back to [facility] in [place]. ISABELA LERNER MD DR: VANE/antoine JOB#: [id number] / [id number]
--- NOTE | 2020-04-30 11:43 | NUR ---
SS following up with discharge planning. SS reviewed pt chart and discussed with pt RN. Pt is from [facility], fax [phone]. Pt's family wanting pt to return to [facility] for skilled rehabilitation. PT/OT ordered. COVID19 test pending. Pt on IV Rocephin. Pt transferring to room 414. Génesis CLIFTON notified.
[2020-04-30 15:00] VITALS: BP 127/68
[2020-04-30] MEDS: DRONABINOL 2.5 MG CAPSULE. PO SCH (15:45)
[2020-04-30 19:00] VITALS: BP 150/78
[2020-04-30] MEDS: LORazepam 0.5 MG TABLET PO PRN (21:03)
[2020-04-30] MEDS: LACTOBACILLUS RHAMNOSUS GG 1 CAPSULE. PO SCH (21:03)
[2020-04-30] MEDS: QUEtiapine 25 MG TABLET. PO SCH (21:04)
[2020-04-30] MEDS: cefTRIAXone IV Push 1 GM VIAL. IVP SCH (21:04)
[2020-04-30 23:00] VITALS: BP 151/73
[2020-05-01 03:00] VITALS: BP 154/92
[2020-05-01 05:18] LABS: HEMATOCRIT 28.8 % (36.0-47.0); HEMOGLOBIN 9.7 g/dL (12.0-15.5); RED BLOOD COUNT 3.03 x10^6/uL (3.50-5.40); RED CELL DISTRIBUTION WIDTH 13.7 % (11.5-14.5)
[2020-05-01 05:43] LABS: ALBUMIN 2.8 g/dL (3.4-5.0); ALBUMIN/GLOBULIN RATIO 0.8 (1.0-1.7); CALCIUM 8.9 mg/dL (8.5-10.1); CREATININE 0.7 mg/dL (0.6-1.0); GFR 84.5; POTASSIUM 3.3 mmol/L (3.5-5.1); TOTAL BILIRUBIN 0.3 mg/dL (0.2-1.0); TOTAL PROTEIN 6.4 g/dL (6.4-8.2)
[2020-05-01 07:00] VITALS: BP 156/72
[2020-05-01] MEDS: ACETAMINOPHEN 500 MG TABLET PO SCH ×2 (09:00→14:00)
[2020-05-01] MEDS: APIXABAN 2.5 MG TABLET. PO SCH (09:00)
[2020-05-01] MEDS: LACTOBACILLUS RHAMNOSUS GG 1 CAPSULE. PO SCH (09:00)
--- NOTE | 2020-05-01 09:32 | NUR ---
ELODIA following. Discussed with RN, ELODIA faxed clinicals to [facility]. Anticipate discharge back to [facility] SNU today. ELODIA sent message to Dr. Jordan to determine discharge. ELODIA will continue to follow. Addendum: 05/01/20 at 1348 by NATALIA CLIFTON Pt discharging back to [facility] today. Transportation arranged by [place] for 1600 pickup via [employer]. RN and family notified.
[2020-05-01 10:59] VITALS: BP 122/78
[2020-05-01] MEDS: DRONABINOL 2.5 MG CAPSULE. PO SCH (11:30)
[2020-05-01] MEDS ORDERED: ENOX40DI SQ (12:06)
[2020-05-01] MEDS ORDERED: LORA0.5T96 PO (12:06)
[2020-05-01] MEDS ORDERED: CEFD300C PO (12:07)
--- NOTE | 2020-05-01 12:21 | SNU/HH DC ---
DISCHARGE ORDERS DISCHARGE INFORMATION: DISCHARGE DATE: May 01, 2020 FINAL DIAGNOSIS Problems Medical Problems: (1) UTI (urinary tract infection) Status: Acute CONDITION ON DISCHARGE: Stable CODE STATUS: Code Status: Full LONGTERM: SNF STAY <30 DAYS: Yes POST DISCHARGE ORDERS: ACTIVITY ORDERS: Activity as tolerated WEIGHT BEARING STATUS: Partial weight bearing DIET AFTER DISCHARGE: Regular WOUND/INCISION CARE: Do not change dressing TREATMENT/EQUIPMENT ORDERS: ADAPTIVE EQUIPMENT NEEDED: None Physical Therapy For: Evalulation/Treatment Occupational Therapy For: Evaluation/Treatment DISCHARGE MEDICATIONS: Home Meds Active Scripts Enoxaparin Sodium (LOVENOX) 40 Mg/0.4 Ml Disp.syrin, 40 MG SQ DAILY for ANTI-COAGULANT for 30 Days, #30 DIS.SYR Prov:ISABELA LERNER MD 05/01/20 Lorazepam (ATIVAN) 0.5 Mg Tablet, 0.5 MG PO TID for anxiety for 30 Days, #90 TAB 5 Refills Prov:ISABELA LERNER MD 05/01/20 Reported Medications Sennosides (SENNA) 8.8 Mg/5 Ml Syrup, 8.8 MG PO BID PRN for prn, MISC 04/19/20 Polyvinyl Alcohol (POLYVINYL ALCOHOL) 15 Ml Drops, 1 DROP EACHEYE TID for dry eye for 30 Days, #15 ML 0 Refills 04/19/20 Acetaminophen (ACETAMINOPHEN) 500 Mg Tablet, 1000 MG PO TID PRN for prn, TAB 04/19/20 Acetaminophen (TYLENOL) 325 Mg Tablet, 500 MG PO TID for pain , TAB 08/09/19 Quetiapine Fumarate (SEROQUEL) 25 Mg Tablet, 25 MG PO HS for anxiety and agit ation , TAB 08/09/19 Discontinued Reported Medications Bupropion Hcl (BUPROPION HCL SR) 100 Mg Tablet.er, 100 MG PO DAILY for depression, TAB.SR 04/19/20 Phenylephrine Hcl/[place] Butter (PREPARATION H SUPPOSITORY) 1 Each Supp.rect, 1 EACH RC DAILY PRN for prn, SUPP.RECT 04/19/20 Cetirizine Hcl (ZYRTEC) 10 Mg Tablet, 10 MG PO DAILY for allergies , TAB 08/09/19 Polyethylene Glycol 3350 (MIRALAX) 17 Gm Powd.pack, 1 PKT PO DAILY for constipation , PKT 08/09/19 Cyclobenzaprine Hcl (CYCLOBENZAPRINE HCL) 10 Mg Tablet, 10 MG PO TID for muscle relaxant , TAB 08/09/19 Cyanocobalamin (Vitamin B-12) (B-12) 2,500 Mcg Tab.subl, 2500 MCG SL BID for vitamin , TAB 08/09/19 Discontinued Scripts Apixaban (ELIQUIS) 2.5 Mg Tablet, 2.5 MG PO BID for DVT Prophylaxis for 30 Days, #60 TAB Prov:ISABELA LERNER MD 04/22/20 Oxycodone/Apap 5-325 (PERCOCET 5-325 MG TABLET ) 1 Each Tablet, 1 TAB PO Q4H PRN for PAIN MDD 4 Tablet(s) for 30 Days, #180 TAB 0 Refills Prov:ISABELA LERNER MD 04/22/20 ISABELA LERNER MD May 01, 2020 12:21
--- NOTE | 2020-05-01 14:42 | NUR ---
Report called to [facility] and spoke with Krystle VIVAS. Pt discharged by w/phil hawkins.
== END 2020-05-01 14:42 | DRG 690 ==
LOC: ER 17:11 → ED HOLD 19:30 → 2 NORTH 21:26 → 4 NORTH 04-30 12:34
PROVIDERS: ADMIT Internal Medicine; ATTEND Internal Medicine
DX: N39.0 Urinary tract infection, site not specified (principal); F03.90 Unspecified dementia, unspecified severity, without behavioral disturbance, psychotic disturbance, mood disturbance, and anxiety; M81.0 Age-related osteoporosis without current pathological fracture; H54.8 Legal blindness, as defined in USA; F32.9 Major depressive disorder, single episode, unspecified; F41.9 Anxiety disorder, unspecified; Z96.641 Presence of right artificial hip joint; Z20.828 Contact with and (suspected) exposure to other viral communicable diseases; M19.90 Unspecified osteoarthritis, unspecified site; Z87.891 Personal history of nicotine dependence; Z88.5 Allergy status to narcotic agent; Z90.710 Acquired absence of both cervix and uterus
CPT/HCPCS: 36415; 80053; 81001; 83605; 85025; 85027; 86140; 87040; 87077; 87086; 87186; 96361; 96374; 96375; J0696; J2060; J7030; 97116-GP; 97530-GO; 97530-GP; 97535-GO; 99285-25; G0378; Q0167; U0003-CS

== ENCOUNTER 2020-05-09 16:13 | Inpatient (IN) | payer MEDICARE, MEDICAID ==
[~2020-05-09] VITALS: Ht 160 cm; Wt 54.8 kg
[~2020-05-09 16:13] MED LIST changes: +CEFD300C PO; +LORA0.5T96 PO
--- NOTE | 2020-05-09 16:33 | PHYS DOC ---
Past Medical History Past Medical History: Anxiety, Dementia, Depression, UTI, Other Additional Past Medical Histor: baseline A&O x 1, posterial cortical atrophy (FERN MORALES ETCHED CIRCUIT PROCESSOR) Past Surgical History: Hysterectomy, Other Additional Past Surgical Histo: bilateral wrist and arm (FERN MORALES ETCHED CIRCUIT PROCESSOR) Smoking Status: Current Every Day Smoker Alcohol Use: None Drug Use: None (FERN MORALES ETCHED CIRCUIT PROCESSOR) General Adult EDM: Chief Complaint: ALTERED MENTAL STATUS HPI: HPI: Patient is a 64 year old female who presents with here by EMS from [address] after staff states that she has been more agitated and aggressive towards staff x1 day. Patient had a hip fracture in April 18 of which the becky are still intact and there is no redness, drainage or signs of infection. On patient was in the hospital for a UTI of which she is on Rocephin for. Patient is not alert and oriented and is talking to things that are not in the room and not making sense. Staff states that she is acting normal for herself but the agitation and aggressiveness is not normal for her. Patient is grabbing and swinging at staff. Patient has a history of TBI, dementia, ankle fracture, hip fracture, UTI, smoker, posterior cortical atrophy, urinary retention, depression, hysterectomy. Patient does not seem to be in any pain. (FERN MORALES ETCHED CIRCUIT PROCESSOR) Review of Systems: Review of Systems: Constitutional: Denies fever or chills. [] Eyes: Denies change in visual acuity. [] HENT: Denies nasal congestion or sore throat. [] Respiratory: Denies cough or shortness of breath. [] Cardiovascular: Denies chest pain or edema. [] GI: Denies abdominal pain, nausea, vomiting, bloody stools or diarrhea. [] : Denies dysuria. [] Musculoskeletal: Denies back pain or joint pain. [] Integument: Denies rash. [] Neurologic: Denies headache, focal weakness or sensory changes. Altered mental status. [] Endocrine: Denies polyuria or polydipsia. [] Lymphatic: Denies swollen glands. [] Psychiatric: Denies depression or anxiety. Increased agitation and aggressiveness. [] (FERN MORALES ETCHED CIRCUIT PROCESSOR) Heart Score: Risk Factors: Risk Factors: DM, Current or recent (<one month) smoker, HTN, HLP, family history of CAD, obesity. Risk Scores: Score 0 - 3: 2.5% MACE over next 6 weeks - Discharge Home Score 4 - 6: 20.3% MACE over next 6 weeks - Admit for Clinical Observation Score 7 - 10: 72.7% MACE over next 6 weeks - Early Invasive Strategies (FERN MORALES APRN) Allergies: Allergies: Allergies Coded Allergies Type Severity Reaction Last Updated Verified codeine Adverse Reaction Intermediate 04/18/20 Yes oxycodone Adverse Reaction Intermediate "makes me loopy" 04/19/20 Yes (FERN MORALES APRN) Physical Exam: PE: Constitutional: Well developed, well nourished, no acute distress, non-toxic appearance. [] HENT: Normocephalic, atraumatic, bilateral external ears normal, oropharynx moist, no oral exudates, nose normal. [] Eyes: PERRLA, EOMI, conjunctiva normal, no discharge. [] Neck: Normal range of motion, no tenderness, supple, no stridor. [] Cardiovascular:Heart rate regular rhythm, no murmur [] Lungs & Thorax: Bilateral breath sounds clear to auscultation [] Abdomen: Bowel sounds normal, soft, no tenderness, no masses, no pulsatile masses. [] Skin: Warm, dry, no erythema, no rash. Becky intact to right hip. [] Back: No tenderness, no CVA tenderness. [] Extremities: No tenderness, no cyanosis, no clubbing, ROM intact, no edema. [] Neurologic: Alert and oriented X 3, normal motor function, normal sensory function, no focal deficits noted. [] Psychologic: Affect normal, judgement abnormal, mood normal. AMS.[] ([facility]) EKG: EK and read by Dr Street as NSR and no STEMI[] ([facility]) Radiology/Procedures: Radiology/Procedures: [] ([facility] APR[facility]) Course & Med Decision Making: Course & Med Decision Making Pertinent Labs and Imaging studies reviewed. (See chart for details) See HPI. Abdomen is soft and nontender. Skin pink warm and dry. Speaks in full clear sentences. Patient is moving all extremities in the bed and is sitting up in the bed and grabbing at things. No extremity edema. Daughter states patient is here and is needing inpatient psych. Daughter states that the patient was was to go to [facility] with their full so she is here at [facility]. Patients daughter is refusing chest xray. I have spoken to Barbie from [facility] team who is coming in to evaluate the patient and see if she can be placed in Geriatric psych. I have ordered Ativan for the patient as she is very aggressive and not letting staff get blood from her. Daughter is refusing Ativan stating that it will just make her mother worse after she wakes up from the Ativan. Daughter is also only wanting an IV or a blood draw in the hands and nowhere else on the patient. Barbie from [facility] team states that the patient will need to be admitted because all facilities are full and [facility] states that they can possibly take the patient on Monday. I will also consult Dr Brock. I spoke with Dr Jordan who states the patient was was to go to and was actually accepted but they did not have the manpower for the patient. He states that he then called [facility] who also stated that they did not have the manpower but could take her in a couple days. He states do not put a Perkins catheter in and do not use restraints. He states the patient needs to be a one-to-one sitter and she needs help feeding. He states that the patient is legally blind and will need help. He states that the patient gets too confused and has her visual hallucinations and if you put a walker in front of her she gets confused and does not know what to do with it. He states that she needs to be a two-person assist when up and walking as the patient can walk but she needs 2 people beside her. He states that she also has a problem with urinary retention and will need to be straight catheter postvoid residual with urinating. He states that the patient should take Seroquel at night and Depakote. He states the patient can take Haldol as needed if needed but nursing needs to call and communicate with the daughter about this and see what the daughter would like nursing to do before giving any Haldol. The daughter earlier had told me that she did not want her mother having any sedate of medications as when she awoke she was doing much worse. I also asked if he would like me to continue any antibiotics for a UTI and he states "no she does not need any antibiotics for now and let us wait to see with a urinary culture comes back as." Urine has been sent for culture. [] (FERN MORALES APRN) Course & Med Decision Making I have reviewed the [employer]'s note and Plan of Care. I was available for consultation as needed during the patient's visit in the emergency department. I agree with the clinical impression, plans and disposition. (BRIG[address]TE STRE[address] MD) Dragon Disclaimer: Dragon Disclaimer: This electronic medical record was generated, in whole or in part, using a voice recognition dictation system. (FERN MORALES APRN) Departure Departure Impression: Primary Impression: Psychosis Qualified Codes: F29 - Unspecified psychosis not due to a substance or known physiological condition Disposition: ADMITTED INPATIENT Admitting Physician: Madi. Seals (FERN MORALES APRN) Condition: STABLE Referrals: DOUG FRANKS MD (PCP) Justicifation of Admission Dx: Justifications for Admission: Justification of Admission Dx: Yes Fracture: Fracture Comments: psychosis (FERN MORALES APRN) FERN MORALES APRN May 09, 2020 16:[address] MD May 10, 2020 06:16
[2020-05-09] MEDS ORDERED: HALOPERIDOL LACTATE 5 MG/ML VIAL. IM ONE (16:45)
[2020-05-09 17:32] LABS: BILIRUBIN,URINE NEGATIVE (NEG); CLARITY,URINE CLEAR; COLOR,URINE YELLOW; NITRITE,URINE NEGATIVE (NEG); PROTEIN,URINE NEGATIVE (NEG-TRACE); UROBILINOGEN,URINE 0.2 mg/dL (0.2 mg/dL)
[2020-05-09 17:39] LABS: SQUAMOUS EPITHELIAL CELL,UR MANY /LPF
[2020-05-09 17:41] LABS: BASO # 0.1 x10^3/uL (0.0-0.2); BASO % 1 % (0-3); EOS # 0.1 x10^3/uL (0.0-0.7); EOS % 1 % (0-3); HEMATOCRIT 36.1 % (36.0-47.0); LYMPH # 2.7 x10^3/uL (1.0-4.8); LYMPH % 29 % (24-48); MEAN CORPUSCULAR HEMOGLOBIN 32 pg (25-35); MEAN CORPUSCULAR HGB CONC 33 g/dL (31-37); MEAN CORPUSCULAR VOLUME 95 fL (79-100); MONO # 0.4 x10^3/uL (0.0-1.1); MONO % 5 % (0-9); NEUT # 5.8 x10^3/uL (1.8-7.7); NEUT % 64 % (31-73); PLATELET COUNT 364 x10^3/uL (140-400); RED CELL DISTRIBUTION WIDTH 13.4 % (11.5-14.5); WHITE BLOOD COUNT 9.2 x10^3/uL (4.0-11.0)
[2020-05-09 17:42] LABS: BACTERIA,URINE FEW /HPF (0-FEW)
[2020-05-09 17:44] LABS: RBC,URINE RARE /HPF (0-2)
[2020-05-09 17:50] LABS: CALCIUM 9.9 mg/dL (8.5-10.1); CREATININE 0.8 mg/dL (0.6-1.0); GFR 72.4; POTASSIUM 3.4 mmol/L (3.5-5.1); PROTHROMBIN TIME PATIENT 12.4 SEC (11.7-14.0)
[2020-05-09 17:56] LABS: ALBUMIN 3.5 g/dL (3.4-5.0); ALBUMIN/GLOBULIN RATIO 0.8 (1.0-1.7); TOTAL BILIRUBIN 0.3 mg/dL (0.2-1.0); TOTAL PROTEIN 7.7 g/dL (6.4-8.2)
[2020-05-09] MEDS ORDERED: HALOPERIDOL LACTATE 5 MG/ML VIAL. IM PRN (19:00)
[2020-05-09] MEDS ORDERED: QUEtiapine 25 MG TABLET. PO SCH (21:00)
[2020-05-10] VITALS: BP 116/57
--- NOTE | 2020-05-10 | NUR ---
The patient, ADRIANA SNYDER, 64 y/o, F admitted by ISABELA LERNER MD, was given written information regarding hospital policies, unit procedures and contact persons. Patient admitted to room 410 transferred with x 3 assistance from cart to bed. Patient confused/disoriented. Patient unable to orient to call light, bed, phone and POC. 1:1 observation per this RN. ED RN gave HIPPA code to Patient's daughter Flroencia. Florencia gave medical history per phone. Valuables were checked and verified per Florencia as to valuables sent with Patient .
[2020-05-10] MEDS ORDERED: LACT1CAP6 PO (01:21)
[2020-05-10] MEDS ORDERED: DRON10CA5 PO (01:29)
[2020-05-10] MEDS ORDERED: POLY119P19 PO (01:33)
[2020-05-10] MEDS ORDERED: [UNRECOGNIZED DRUG - OTHER] (03:08)
[2020-05-10] MEDS ORDERED: [UNRECOGNIZED DRUG - OTHER] IM (03:08)
[2020-05-10 03:15] VITALS: BP 118/60
[2020-05-10 07:00] VITALS: BP 119/57
[2020-05-10] MEDS ORDERED: ACETAMINOPHEN 500 MG TABLET PO PRN ×2 (09:00)
[2020-05-10] MEDS ORDERED: cefTRIAXone IM 1 GM VIAL IM SCH (09:00)
[2020-05-10] MEDS ORDERED: QUEtiapine 25 MG TABLET. PO PRN (09:00)
[2020-05-10] MEDS: LACTOBACILLUS RHAMNOSUS GG 1 CAPSULE. PO SCH ×2 (09:28→20:56)
[2020-05-10] MEDS: LORazepam 0.5 MG TABLET PO SCH ×3 (09:31→20:56)
[2020-05-10 11:00] VITALS: BP 116/54
--- NOTE | 2020-05-10 11:27 | HP ---
ADMIT DATE: HISTORY OF PRESENT ILLNESS: The patient is a 64-year-old female patient, a resident at [facility], who was brought to the Emergency Room of [facility]. She has been extremely agitated, aggressive towards staff and that has been going on for since last Monday. We did actually arrange for her to be admitted to [facility] in [facility] and was accepted; however, they do not have enough nursing staff to take her and I did speak with her daughter and we decide to start her on Depakote as recommended by the supportive groups of patient with similar illness. Her agitation and restlessness has worsened yesterday and initially the plan was to send her to [facility]; however, the ambulance brought her to [facility] where she was evaluated and was admitted for observation and hopefully to admit her to [facility] once the nursing staff improves, hopefully on Monday. The patient herself is restless, agitated, confused. PAST MEDICAL HISTORY: Significant for recent admission for right hip fracture. She is known to have anxiety, depression posterior cortical atrophy. She also has osteoarthritis and osteoporosis. She has cortical blindness. PAST SURGICAL HISTORY: Significant for hysterectomy, bilateral wrist and forearm fracture that she sustained after she fell and right hip fracture, status post right hip hemiarthroplasty. ALLERGIES: SHE IS ALLERGIC TO CODEINE AND OXYCODONE. MEDICATIONS: She is currently on following medications. She is on Tylenol 500 mg every 6 hours as needed, Seroquel 25 mg at bedtime, lorazepam 0.5 mg 3 times a day, polyvinyl alcohol 1 drop 3 times a day, lactobacillus acidophilus 1 capsule twice a day, polyethylene glycol 17 grams daily p.r.n. for constipation, dronabinol 2.5 mg p.o. b.i.d. She completed her ceftriaxone treatment for UTI. FAMILY HISTORY: Noncontributory. SOCIAL HISTORY: She is currently residing at [facility]. She does smoke, but does not drink alcohol or use any recreational drugs. Her daughter is her DPOA. REVIEW OF SYSTEMS: Unobtainable on arrival to the Emergency Room. PHYSICAL EXAMINATION: GENERAL: On arrival to the Emergency Room, the patient was well-developed, well-nourished, in no acute respiratory distress. VITAL SIGNS: Her heart rate on arrival was 75, blood pressure was 165/104, temperature was 98, respiratory rate 20, and oxygen saturation was 97%. HEAD, EYES, EARS, NOSE AND THROAT: Showed normocephalic, atraumatic. NECK: Supple. CARDIAC: Normal first and second heart sounds. No gallop or murmur. CHEST: Clear to auscultation. No crepitation or rhonchi. ABDOMEN: Distended, soft, nontender. NEUROLOGIC: She has cortical blindness. However, she is able to move her extremities without difficulty. LABORATORY DATA: Showed a white cell count of 9200, hemoglobin 12, hematocrit 36, MCV 95, and platelet count 364,000. Her serum sodium was 143, potassium 3.4, chloride 103, bicarbonate 28, anion gap of 12, BUN 9, creatinine 0.8, estimated GFR was 72 mL per minute, has glucose 103, calcium was 9.9. Total bilirubin, AST, ALT, alkaline phosphatase were normal. Total protein was 7.7, albumin was 3.5. Her prothrombin time and INR are normal. Urinalysis showed the urine was yellow, clear with a pH of 6, specific 1.010. The urine was negative for protein, glucose, ketones, blood, nitrite and leukocyte esterase, moderate amount of leukocyte esterase, rare rbc's, 5-10 wbc's, very few bacteria. The urine was sent for culture and sensitivity. ASSESSMENT AND PLAN: In summary, this is a 64-year-old female patient who was admitted with posterior cortical atrophy and was admitted with worsening agitation and restlessness. The plan is to admit the patient. She obviously needs 1:1 sitter. I will hold on antibiotic treatment for now, continue with all her other medications. We will explain to the nursing staff that she cannot use a walker, but 2-person assist, they can walk with her. She should be taken to the bathroom to urinate first and should scan her bladder and straight catheter if need be. I will consult Dr. Akash Brock to see her and I spoke with [facility] and apparently they did not have enough staff to take care and hopefully on Monday, she will be able to transfer there. ISABELA LERNER MD DR: VANE/antoine JOB#: [id number] / [id number]
--- NOTE | 2020-05-10 13:19 | PN ---
DATE: 05/10/2020 SUBJECTIVE: The patient is resting, slightly propped up in her recliner. She continued to be extremely restless, agitated and unfortunately, the [facility] at is under staffed and apparently the [facility] did not complete the application as it should be, so she will be first in the list tomorrow morning for intake and hopefully to be transferred there tomorrow. PHYSICAL EXAMINATION: GENERAL: When I examined her this morning, she looked well and was clearly in no apparent respiratory distress, pale, somewhat cachectic, but no jaundice, cyanosis or thyromegaly. No jugular venous distention. No lower limb edema. VITAL SIGNS: Her heart rate was 63, blood pressure was 119/57, temperature 97.9, respiratory rate 22, and oxygen saturation was 99%. The rest of clinical exam is stable, has not really changed. LABORATORY DATA: No lab work was done this morning. PLAN: I have spoken with her daughter and the plan is for her to start her on low-dose Seroquel 12.5 mg every 4 hours as needed and keep Seroquel schedule at night time. Continue with Tylenol. Continue with dronabinol. Again, I reiterated to the nursing staff that the patient does not use the walker and she needs 2-person assist to walk with. She needs to be given a chance to go to the toilet or a bedside commode and she was unable to pee to scan her bladder and straight cath her. She needs assistance with feeding and she should not be restrained. However, she needs 1:1 sitter. If she is accepted tomorrow, we will transfer her to [facility]. ISABELA LERNER MD DR: VANE/antoine JOB#: [id number] / [id number]
[2020-05-10] MEDS: DRONABINOL 2.5 MG CAPSULE. PO SCH ×2 (14:53→17:33)
[2020-05-10] MEDS: POLYVINYL ALCOHOL 1.4% OPHTH SOLUTION 15ML BOTTLE. OU SCH ×3 (14:54→21:00)
[2020-05-10 15:00] VITALS: BP 119/58
[2020-05-10 19:00] VITALS: BP 109/80
--- NOTE | 2020-05-10 19:15 | PDOC1 ---
History & Psych Evaluation Date of Service: DOS: DATE: 05/10/20 TIME: 18:59 Source: Source: Caregiver, Chart review, Patient Identification: Identification She is a 64-year-old female admitted with delirium and agitation. Chief Complaint: Chief Complaint Altered mental status, delirium, and agitation History of Present Illness: HPI: She is a 64-year-old female fairly known to the grant writer from previous admission when she was admitted with altered mental status. She is supposed to be admitted at [facility] however due to limited staff capacity she was being transferred to [facility] however ambulance brought her to [facility]. She is accompanied by her brother. Information is also obtained from brother. He reported that, for the past few months days patient has been increasingly agitated, with rambling thought process, and hallucinations. However, he continues to ruminate that no medication can be given without the permission of her daughter and Dr. Bautista. He said that multiple times during the visit. When seen, patient appears very delusional, reacting to internal stimuli, as she was talking to somebody and referring to someone. She also reported hallucinations to her brother who was at the bedside. She is dysphoric and agitated. Due to severe disorientation, lack of insight, she is not able to engage in interview. However she is verbal, disorganized, with rambling thought process. Denies suicidal or homicidal thoughts. Denies visual hallucinations. Past Psychiatric History: According to the chart review patient has history of depression Past Medical History: Please see medical chart for details Current Medications: Current Medications Current Medications Medications (Trade) Dose Ordered Sig/Debra Start Time Stop Time Status Last Admin Dose Admin Acetaminophen (Tylenol) 500 mg PRN Q8HRS PRN 05/10/20 09:00 Ceftriaxone Sodium (Rocephin Im) 1 gm DAILY 05/10/20 09:00 05/10/20 09:20 DC Dronabinol (Marinol) 2.5 mg BIDACLD 05/10/20 11:30 05/10/20 17:33 2.5 MG Glycerin/ Hypromellose/ Polyethylene (Artificial Tears) 1 drop TID 05/10/20 09:00 05/10/20 14:55 1 DROP Haloperidol Lactate (Haldol Inj) 5 mg PRN Q4HRS PRN 05/09/20 19:00 05/10/20 06:00 DC Lactobacillus Rhamnosus (Culturelle) 1 cap BID 05/10/20 09:00 05/10/20 09:28 1 CAP Lorazepam (Ativan Inj) 2 mg 1X ONCE 05/09/20 17:00 05/09/20 17:01 DC Lorazepam (Ativan) 0.5 mg TID 05/10/20 09:00 05/10/20 14:53 0.5 MG Nystatin (Nystop) 1 earl BID 05/10/20 21:00 Polyethylene Glycol (miraLAX PACKET) 17 gm PRN DAILY PRN 05/11/20 09:00 Quetiapine Fumarate (SEROquel) 25 mg QHS 05/10/20 21:00 Allergies: Allergies: Coded Allergies: codeine (Verified Adverse Reaction, Intermediate, 04/18/20) oxycodone (Verified Adverse Reaction, Intermediate, "makes me loopy", 04/19/20) Mental Status Examination: Mental Status Examination female appears her stated age, She is uncooperative, dysphoric She is disoriented Thought processes concrete and disorganized She has auditory hallucinations and reacting to internal stimuli. Denies suicidal or homicidal thoughts. Mood is dysphoric Affect is dysthymic Insight is poor Judgment is poor Impulse control is poor Attention span and concentration impaired Recent and remote memory impaired. ROS: 14 point review of system is otherwise negative except for stated above. Physical Exam: Refer to Physician's note. NEIGHB[facility]HO[facility]ICE C[facility] DIRECTOR: No focal deficit MSK: No EPS, TDK, or abnormal involuntary movements Vitals: Vitals Vital Signs Date Time Temp Pulse Resp B/P (MAP) Pulse Ox O2 Delivery O2 Flow Rate FiO2 05/10/20 15:00 97.9 75 22 119/58 (78) 99 Room Air 97.9 Labs: Labs Laboratory Tests Test 05/09/20 17:25 05/09/20 17:30 Urine Collection Type Unknown Urine Color Yellow Urine Clarity Clear Urine pH 6.0 (<5.0-8.0) Urine Specific Newell 1.010 (1.000-1.030) Urine Protein Negative mg/dL (NEG-TRACE) Urine Glucose (UA) Negative mg/dL (NEG) Urine Ketones (Stick) Negative mg/dL (NEG) Urine Blood Negative (NEG) Urine Nitrite Negative (NEG) Urine Bilirubin Negative (NEG) Urine Urobilinogen Dipstick 0.2 mg/dL (0.2 mg/dL) Urine Leukocyte Esterase Moderate (NEG) Urine RBC Rare /HPF (0-2) Urine WBC 5-10 /HPF (0-4) Urine Squamous Epithelial Cells Many /LPF Urine Bacteria Few /HPF (0-FEW) Urine Mucus Mod /LPF White Blood Count 9.2 x10^3/uL (4.0-11.0) Red Blood Count 3.80 x10^6/uL (3.50-5.40) Hemoglobin 12.0 g/dL (12.0-15.5) Hematocrit 36.1 % (36.0-47.0) Mean Corpuscular Volume 95 fL (79-100) Mean Corpuscular Hemoglobin 32 pg (25-35) Mean Corpuscular Hemoglobin Concent 33 g/dL (31-37) Red Cell Distribution Width 13.4 % (11.5-14.5) Platelet Count 364 x10^3/uL (140-400) Neutrophils (%) (Auto) 64 % (31-73) Lymphocytes (%) (Auto) 29 % (24-48) Monocytes (%) (Auto) 5 % (0-9) Eosinophils (%) (Auto) 1 % (0-3) Basophils (%) (Auto) 1 % (0-3) Neutrophils # (Auto) 5.8 x10^3/uL (1.8-7.7) Lymphocytes # (Auto) 2.7 x10^3/uL (1.0-4.8) Monocytes # (Auto) 0.4 x10^3/uL (0.0-1.1) Eosinophils # (Auto) 0.1 x10^3/uL (0.0-0.7) Basophils # (Auto) 0.1 x10^3/uL (0.0-0.2) Prothrombin Time 12.4 SEC (11.7-14.0) Prothromb Time International Ratio 1.0 (0.8-1.1) Sodium Level 143 mmol/L (136-145) Potassium Level 3.4 mmol/L (3.5-5.1) Chloride Level 103 mmol/L (98-107) Carbon Dioxide Level 28 mmol/L (21-32) Anion Gap 12 (6-14) Blood Urea Nitrogen 9 mg/dL (7-20) Creatinine 0.8 mg/dL (0.6-1.0) Estimated GFR (Cockcroft-Gault) 72.4 BUN/Creatinine Ratio 11 (6-20) Glucose Level 103 mg/dL (70-99) Calcium Level 9.9 mg/dL (8.5-10.1) Total Bilirubin 0.3 mg/dL (0.2-1.0) Aspartate Amino Transf (AST/SGOT) 21 U/L (15-37) Alanine Aminotransferase (ALT/SGPT) 22 U/L (14-59) Alkaline Phosphatase 112 U/L (46-116) Troponin I Quantitative < 0.017 ng/mL (0.000-0.055) TH-Emm-D-Type Natriuretic Peptide 79 pg/mL (0-124) Total Protein 7.7 g/dL (6.4-8.2) Albumin 3.5 g/dL (3.4-5.0) Albumin/Globulin Ratio 0.8 (1.0-1.7) Diagnosis: Diagnosis: Acute delirium likely hypoactive and hyperactive, multifactorial Unspecified depression, rule out major depressive disorder Unspecified psychosis Assessment: 64-year-old female is a struggling with acute delirium likely multifactorial. She is psychotic in context of ongoing delirium. Reacting to internal stimuli. She is on Seroquel 25 mg. Recommending to start more potent antipsychotic like risperidone 1 mg at bedtime further resolution of delirium and psychosis. However, patient's brother is adamant and ruminated that no medication can be changed without the permission of patient's daughter and Dr. Bautista. Plan: Recommending risperidone 1 mg at bedtime instead of Seroquel. For agitation, Haldol 2.5 mg every 6 hours as needed. Monitor for agitation, symptomatology, confusion, and adverse drug reaction. Thank you for involving inpatient care TREY TAPIA MD May 10, 2020 19:15
[2020-05-10] MEDS: NYSTATIN TOPICAL POWDER 15GM BOTTLE. TP SCH (20:56)
[2020-05-10] MEDS ORDERED: QUEtiapine 25 MG TABLET. PO SCH ×2 (21:00)
[2020-05-11 07:00] VITALS: BP 114/64
--- NOTE | 2020-05-11 07:55 | EKG ---
[facility] [address] [place] [address] Test Date: 2020-05-09 Test Time: 17:34:25 Pat Name: ADRIANA SNYDER Department: Room: Gender: F Guest Room Attendant: : [id number] Requested By: FERN MORALES Order Number: [id number] Reading MD: Measurements Intervals [place] Rate: 65 P: 59 LA: 146 QRS: 51 QRSD: 76 T: 46 QT: 418 QTc: 435 Interpretive Statements SINUS RHYTHM NORMAL ECG RI6.02 No previous ECG available for comparison
[2020-05-11] MEDS: NYSTATIN TOPICAL POWDER 15GM BOTTLE. TP SCH (08:10)
[2020-05-11] MEDS: LORazepam 0.5 MG TABLET PO SCH (08:10)
[2020-05-11] MEDS: LACTOBACILLUS RHAMNOSUS GG 1 CAPSULE. PO SCH (08:10)
[2020-05-11] MEDS: POLYVINYL ALCOHOL 1.4% OPHTH SOLUTION 15ML BOTTLE. OU SCH ×3 (08:10→17:16)
[2020-05-11] MEDS ORDERED: POLYETHYLENE GLYCOL 3350 17 GM PACKET. PO PRN (09:00)
[2020-05-11] MEDS ORDERED: HALOPERIDOL 2 MG TABLET. PO PRN (09:30)
--- NOTE | 2020-05-11 09:43 | NUR ---
ELODIA following. Discussed with RN and Dr. Jordan. Pt from [facility]. Referral to [facility] was initiated from [facility] over the weekend. Dr. Jordan received tentative acceptance, however paperwork was not completed. ELODIA left voicemail for Yanira hse coordinator for the unit. Awaiting return call. Anticipate discharge today. Addendum: 05/11/20 at 1021 by NATALIA CLIFTON ELODIA spoke with Yanira at [facility], referral packet faxed. Awaiting acceptance decision. Addendum: 05/11/20 at 1226 by NATALIA CLIFTON Pt accepted at [facility] unit. Pt can admit there between [id number]. Pt's daughter signed consents. ELODIA arranged transportation with [facility] for 1929. RN notified.
[2020-05-11 11:00] VITALS: BP 130/55
--- NOTE | 2020-05-11 11:03 | PN ---
DATE: 05/11/2020 ADDENDUM The patient is unable to make a decision for her medical care otherwise and her medical power of zipper sewing machine operator should be activated as her daughter has the power of zipper sewing machine operator and she is the one who makes all the decisions for her. ISABELA LERNER MD DR: VANE/antoine JOB#: [id number] / [id number]
--- NOTE | 2020-05-11 11:44 | PN ---
DATE: SUBJECTIVE: The patient is a 64-year-old female patient who was admitted from the [facility] with altered mental status. Over the last few days the patient has been increasingly agitated, has some kind of hallucination and was very restless and therefore, we arranged for her to be admitted to [facility]. Unfortunately, I do not have enough manpower although she typically was accepted there and therefore, she ended up in [facility]. I did consult Dr. Brock to assist with her management and he kindly saw her yesterday and switched her medication to risperidone 1 mg at bedtime instead of Seroquel and for agitation, Haldol 2.5 mg every 6 hours as needed. When I saw her this morning, she continued to have this restless and agitation. PHYSICAL EXAMINATION: GENERAL: When I examined her, she was somewhat pale, no jaundice, cyanosis or thyromegaly. No jugular venous distention. No limb edema. VITAL SIGNS: Her heart rate was 75, blood pressure was 114/64, temperature was 98.2, respiratory rate was 18 and oxygen saturation was 98%. HEAD EYES, EARS, NOSE AND THROAT: Normocephalic, atraumatic. NECK: Supple. HEART: Showed normal first and second heart sounds. No gallop or murmur. CHEST: Clear to auscultation. No crepitation or rhonchi. ABDOMEN: Scaphoid, soft, nontender. NEUROLOGIC: She is awake, alert, very restless, agitated; however, all cranial nerves are intact. She moves extremities without difficulty. She ambulates with 2-person assist. Her intake and output were incompletely recorded. LABORATORY DATA: Most recent lab work showed a white cell count 9200, hemoglobin 12, hematocrit 36, MCV 95, and platelet count 364,000. Her chemistry showed a serum sodium 143, potassium 3.4, chloride 103, bicarbonate 28, anion gap of 12, BUN 9, creatinine 0.8, estimated GFR was 72 mL per minute. Her glucose 103, calcium was 9.9. Total bilirubin, AST, ALT, alkaline phosphatase were normal. Her total protein was 7.7, albumin was 3.5. ASSESSMENT: In summary, this is a 64-year-old female patient, who was admitted with acute delirium as well as unspecified depression and unspecified psychosis. She has obviously multiple other medical problems including posterior cerebral cortical atrophy, osteoarthritis and osteoporosis. She has also had vulvovaginal candidiasis , which I started her on Monistat, one application vaginally at bedtime for 7 consecutive nights, 1 tablet nystatin also and I left a message with ____ intake nurse at [facility] and hopefully if she is accepted, she will be discharged there today. ISABELA LERNER MD DR: VANE/antoine JOB#: [id number] / [id number]
[2020-05-11] MEDS: DRONABINOL 2.5 MG CAPSULE. PO SCH ×2 (12:26→16:30)
[2020-05-11 15:00] VITALS: BP 138/58
--- NOTE | 2020-05-11 17:48 | PDOC ---
F/U PHYSCH PROG NOTE Subjective: female seen for routine follow-up. Progress is reviewed with nursing staff. She has been transferring to [facility] for further care. Likely risperidone will be restarted when she will be at [facility]. She continues to be disorganized, delusional, and reacting to internal stimuli. She is on one-on-one care. One-on-one care staff also reported that patient has been hallucinating. Denies suicidal or homicidal thoughts. Objective: 14 point review of system is otherwise negative except for as stated above. Vital Signs: Vital Signs Date Time Temp Pulse Resp B/P (MAP) Pulse Ox O2 Delivery O2 Flow Rate FiO2 05/11/20 15:00 98.2 80 18 138/58 (84) 97 Room Air 98.2 Medications: Current Medications Medications (Trade) Dose Ordered Sig/Debra Start Time Stop Time Status Last Admin Dose Admin Acetaminophen (Tylenol) 500 mg PRN Q8HRS PRN 05/10/20 09:00 Ceftriaxone Sodium (Rocephin Im) 1 gm DAILY 05/10/20 09:00 05/10/20 09:20 DC Clotrimazole (Mycelex-7) 1 earl HS 05/11/20 21:00 05/18/20 20:59 Dronabinol (Marinol) 2.5 mg BIDACLD 05/10/20 11:30 05/11/20 12:26 2.5 MG Glycerin/ Hypromellose/ Polyethylene (Artificial Tears) 1 drop TID 05/10/20 09:00 05/11/20 08:10 1 DROP Haloperidol (Haldol) 2.5 mg PRN Q6HRS PRN 05/11/20 09:30 Haloperidol Lactate (Haldol Inj) 5 mg PRN Q4HRS PRN 05/09/20 19:00 05/10/20 06:00 DC Lactobacillus Rhamnosus (Culturelle) 1 cap BID 05/10/20 09:00 05/11/20 08:10 1 CAP Lorazepam (Ativan Inj) 2 mg 1X ONCE 05/09/20 17:00 05/09/20 17:01 DC Lorazepam (Ativan) 0.5 mg TID 05/10/20 09:00 05/11/20 09:29 DC 05/11/20 08:10 0.5 MG Nystatin (Nystop) 1 earl BID 05/10/20 21:00 05/11/20 08:10 1 EARL Polyethylene Glycol (miraLAX PACKET) 17 gm PRN DAILY PRN 05/11/20 09:00 Quetiapine Fumarate (SEROquel) 25 mg QHS 05/10/20 21:00 05/11/20 09:29 DC 05/10/20 20:56 25 MG Risperidone (RisperDAL) 1 mg QHS 05/11/20 21:00 Physical Exam: Mental Status Exam: female appears her stated age, She is uncooperative, She is disoriented Thought processes concrete and disorganized She has auditory hallucinations and reacting to internal stimuli. Denies suicidal or homicidal thoughts. Mood is dysphoric Affect is dysthymic Insight is poor Judgment is poor Impulse control is poor Attention span and concentration impaired Recent and remote memory impaired Physical Exam: Refer to Physician's note. [employer]: No focal deficit MSK: No EPS, TDK, or abnormal involuntary movements Diagnosis: Acute delirium likely hypoactive and hyperactive, multifactorial Unspecified depression, rule out major depressive disorder Unspecified psychosis Assessment: 64-year-old female is a struggling with acute delirium likely multifactorial. She is psychotic in context of ongoing delirium. Reacting to internal stimuli. She is on Seroquel 25 mg. Recommending to start more potent antipsychotic like risperidone 1 mg at bedtime further resolution of delirium and psychosis. However, patient's brother is adamant and ruminated that no medication can be changed without the permission of patient's daughter and Dr. Bautista. Plan: Recommending risperidone 1 mg at bedtime instead of Seroquel. For agitation, Haldol 2.5 mg every 6 hours as needed. Monitor for agitation, symptomatology, confusion, and adverse drug reaction. Psychoeducation provided. Supportive psychotherapy provided TREY TAPIA MD May 11, 2020 17:48
--- NOTE | 2020-05-11 19:48 | NUR ---
Report called to [phone]
[2020-05-11] MEDS ORDERED: CLOTRIMAZOLE 1% VAGINAL CREAM 45GM TUBE. VG SCH (21:00)
[2020-05-11] MEDS ORDERED: risperiDONE 1 MG TABLET. PO SCH (21:00)
--- NOTE | 2020-05-21 10:09 | DS ---
DATE OF DISCHARGE: HOSPITAL COURSE: The patient is a 64-year-old female patient, resident at [facility] in [place], who was brought to the Emergency Room with a complaint of discomfort around her Perkins catheter. The nursing staff at the group home thought that she has pus around her Perkins catheter and was changed; however, she was brought to the Emergency Room as there was suspicion that she might have UTI. Her urinalysis showed that she was positive for leukocyte esterase. There are too numerous to count wbc's and many bacteria and was admitted for inpatient treatment with IV antibiotic. The patient herself has posterior cortical atrophy and impairment in communication. She was treated with IV ceftriaxone and the patient has been extremely agitated, restless. She is legally blind and she was also seen by the physical and occupational therapy and apparently is unable to use a walker, but however, she is able to walk with 2-person assist and we also decided not to place the Perkins catheter and that she should be given a chance to use a bedside commode and if she is unable to urinate, to use a straight catheterization and once she is stabilized, a decision was made to discharge her back to [facility] in [place] to continue the process of rehabilitation. She was continued on IV Rocephin and also apixaban for DVT prophylaxis. PHYSICAL EXAMINATION: GENERAL: On the day of discharge, the patient looked well and was clearly in no apparent respiratory distress. No pallor, jaundice, cyanosis or thyromegaly. No jugular venous distention or limb edema. VITAL SIGNS: Her heart rate was 67, blood pressure was 122/78, her temperature was 98.2, respiratory rate was 18 and oxygen saturation was 98% on room air. HEAD, EYES, EARS, NOSE AND THROAT: Showed she is normocephalic, atraumatic. NECK: Supple. CARDIAC: Normal first and second heart sounds. No gallop, rub or murmur. CHEST: Clear to auscultation. No crepitation or rhonchi. ABDOMEN: Scaphoid, soft, nontender. NEUROLOGIC: She is very restless, agitated. She is legally blind. She has posterior cortical atrophy; however, all other cranial nerves are intact. She moves extremities without difficulty. She is able to ambulate with a 2-person assist. Her intake and output were incompletely recorded. LABORATORY DATA: Her lab work on the day of discharge showed a white cell count 7000, hemoglobin 10, hematocrit 30, MCV 95, and platelet count 382,000. Her chemistry showed a serum sodium 142, potassium 3.3, chloride 108, bicarbonate 24, anion gap of 10, BUN 17, creatinine 0.7, estimated GFR was 84 mL per minute. Her glucose was 83, calcium was 8.9. Total bilirubin, AST, ALT, alkaline phosphatase were normal. Total protein 6.4, albumin 2.8. Her urinalysis showed that she has large amount of blood, large amount of leukocyte esterase, too numerous to count rbc's, too numerous to count wbc's and many bacteria. Her urine culture was still pending at the time of discharge. DISCHARGE MEDICATIONS: She was discharged back to [facility] in [place] to continue on lorazepam 0.5 mg 3 times a day and polyvinyl alcohol 1 drop to both eyes 3 times a day as needed, Seroquel 25 mg at bedtime, Tylenol 650 mg 3 times a day and apixaban 2.5 mg. Her apixaban, Wellbutrin, Zyrtec, cyanocobalamin, cyclobenzaprine and oxycodone as well as phenylephrine all discontinued per her daughter's request. FINAL DISCHARGE DIAGNOSES: 1. Altered mental status. 2. Urinary tract infection. 3. Posterior cortical atrophy. 4. Recent fall with right hip fracture, status post open reduction and internal fixation. ISABELA LERNER MD DR: VANE/antoine JOB#: [id number] / [id number]
== END 2020-05-11 19:35 | DRG 880 ==
LOC: ER 16:13 → 4 NORTH 19:00
PROVIDERS: ADMIT Internal Medicine; ATTEND Internal Medicine
DX: F05 Delirium due to known physiological condition (principal); B37.3 Candidiasis of vulva and vagina; F03.90 Unspecified dementia, unspecified severity, without behavioral disturbance, psychotic disturbance, mood disturbance, and anxiety; F17.200 Nicotine dependence, unspecified, uncomplicated; F32.9 Major depressive disorder, single episode, unspecified; M19.90 Unspecified osteoarthritis, unspecified site; M81.0 Age-related osteoporosis without current pathological fracture; Z79.899 Other long term (current) drug therapy; Z87.820 Personal history of traumatic brain injury; Z90.710 Acquired absence of both cervix and uterus; F41.9 Anxiety disorder, unspecified; Z88.8 Allergy status to other drugs, medicaments and biological substances; Z87.440 Personal history of urinary (tract) infections
CPT/HCPCS: 36415; 80053; 81001; 83880; 84484; 85025; 85610; 87086; 93005; 99285; G0378; Q0167